=== PATIENT | female | born 1995 | race Caucasian/White ===

== ENCOUNTER → 2022-09-27 13:07 | Outpatient (BNVA) | payer BC, SELFPAY | PROVIDERS: Family Provider Nurse Practitioner; PCP Family Medicine; Visit Provider Family Medicine | DX: Z34.90 Encounter for supervision of normal pregnancy, unspecified, unspecified trimester (principal) | CPT/HCPCS: 80307; 81000; 81025; 84144; 84443; 84702; 85025; 86592; 86762; 86803; 86850; 86900; 87086; 87340; 87491; 87591; 87806 ==

== ENCOUNTER 2022-11-03 12:44 | Outpatient (CLI) | payer BC, SELFPAY ==
--- NOTE | 2022-11-03 12:45 | US_ITS ---
WS: [id number] EARLY OBSTETRICAL ULTRASOUND (<14 WEEKS). HISTORY: Dates. COMPARISON: None available. Single intrauterine gestational sac is identified. Cardiac activity at 160 BPM. [place]-rump length sharon sures 5.5 cm which corresponds to a gestation of 12w1d. Normal-appearing yolk sac and amnion demonstr ated. No subchorionic hemorrhage. No free fluid. Normal size ovaries with no mass. Cervix is closed measuring 3.8 cm in length. US/US OB <= 14 weeks fetus [id number] IMPRESSION: 1. Single intrauterine gestation of 12 weeks 1 day with an EDC of 05/17/2023. 2. Normal cardiac cavity.
== END 2022-11-03 12:45 | disposition home or self-care (01) ==
PROVIDERS: Family Provider Nurse Practitioner; PCP Family Medicine; Visit Provider Family Medicine
DX: Z36.87 Encounter for antenatal screening for uncertain dates (principal); Z3A.12 12 weeks gestation of pregnancy
CPT/HCPCS: 76801

== ENCOUNTER → 2022-11-24 11:42 | Outpatient (BNVA) | payer BC, SELFPAY | PROVIDERS: Family Provider Nurse Practitioner; PCP Family Medicine; Visit Provider Family Medicine | DX: Z34.00 Encounter for supervision of normal first pregnancy, unspecified trimester (principal) | CPT/HCPCS: 81511 ==

== ENCOUNTER 2022-12-29 14:12 | Outpatient (CLI) | payer BC, SELFPAY ==
--- NOTE | 2022-12-29 14:15 | US_ITS ---
WS: [email or web address] OBSTETRICAL ULTRASOUND COMPLETE HISTORY: Anatomy US - 5 weeks from now - 12/29, 12/30 or 12/31 best COMPARISON: 11/03/2022 Single intrauterine gestation in breech presentation. Cervix is Closed and normal length. Cervical length is 4.2 cm. Normal amount of amniotic fluid surrounds the fetus. Placenta: Anterior, no previa or abruption. Placenta ends 2 cm above the internal cervical os. Place nta grade 1 Heart: 129 BPM. Four chambers are identified. Outflow tracts are not well visualized. Anatomy: Intracranial structures are normal. Due to position the spine is limited. kidney s, stomach and urinary bladder are unremarkable. Abdominal wall, three-vessel cord and cord insertion site are normal. 4 extremities are present. The orientation of the foot with the lower extremity is at a very sharp an gle. This needs to be further evaluated for possible clubfoot. This also may be related to crossing l ower extremities. profile: Unremarkable. Gender: Female. measurements: BPD = 4.5 cm = 19w5d; HC = 17.1 cm = 19w5d; AC = 14.7 cm = 20w0d; FL = 3.4 cm = 20w5d; EFW: 340 g. Biometry is internally concordant. AGA by ultrasound: 20w0d JASON by ultrasound: 05/18/2023 Normal growth since the prior study. US/US OB >= 14 weeks fetus [id number] IMPRESSION: 1. Single intrauterine gestation of 20w0d with an JASON of 05/18/2023. Appropria te growth of the fetus since the prior ultrasound. 2. Limited evaluation of the four-chamber heart and outflow tracts, suspect fe katy spine and lower extremities. Recommend reevaluation of the lower extremitie s for orientation related to the tib-fib and feet. Remaining anatomy is normal.
== END 2022-12-29 14:13 | disposition home or self-care (01) ==
LOC: RAD 14:13
PROVIDERS: PCP Family Medicine; Visit Provider Family Medicine
DX: Z34.00 Encounter for supervision of normal first pregnancy, unspecified trimester (principal)
CPT/HCPCS: 76805

== ENCOUNTER → 2023-01-18 09:52 | Outpatient (BNVA) | payer BC, SELFPAY | PROVIDERS: PCP Family Medicine; Visit Provider Family Medicine | DX: R30.0 Dysuria (principal) | CPT/HCPCS: 87086 ==

== ENCOUNTER 2023-02-02 07:28 | Outpatient (CLI) | payer BC, SELFPAY ==
--- NOTE | 2023-02-02 08:00 | US_ITS ---
WS: [email or web address] ULTRASOUND OB LIMITED TECHNIQUE: Limited ultrasound examination of the fetus. CLINICAL INFORMATION: Follow up US 2-3 weeks COMPARISON: December 29, 2022 FINDINGS: Cervix measures 3.7 cm Single interuterine gestation. presentation is vertex Placental location is anterior and low-lying. Placenta grade: 0. heart rate 131 BPM. Anatomy: Normal spinal visualized today. Four-chamber heart and outflow tracts appear normal today. B ilateral tib-fib and visualized feet appear normal. US/US OB limited [id number] IMPRESSION: 1. Placenta is anterior and low-lying. Recommend 3rd trimester follow-up. 2. Normal cervix measuring 3.7 CM. 3. Four-chamber heart and outflow tracts appear normal today. 4. Visualized spine appears normal. 5. Bilateral tib-fib and visualized feet appear normal.
== END 2023-02-02 07:29 | disposition home or self-care (01) ==
PROVIDERS: PCP Family Medicine; Visit Provider Family Medicine
DX: Z34.00 Encounter for supervision of normal first pregnancy, unspecified trimester (principal)
CPT/HCPCS: 76815

== ENCOUNTER → 2023-02-24 10:49 | Outpatient (BNVA) | payer BC, SELFPAY | PROVIDERS: PCP Family Medicine; Visit Provider Family Medicine | DX: R25.2 Cramp and spasm (principal); Z34.00 Encounter for supervision of normal first pregnancy, unspecified trimester | CPT/HCPCS: 80048; 82950; 83735 ==

== ENCOUNTER → 2023-03-24 11:34 | Outpatient (BNVA) | payer BC, SELFPAY | PROVIDERS: PCP Family Medicine; Visit Provider Family Medicine | DX: Z51.81 Encounter for therapeutic drug level monitoring (principal) | CPT/HCPCS: 85025 ==

== ENCOUNTER 2023-04-05 07:09 | Outpatient (CLI) | payer BC, SELFPAY ==
--- NOTE | 2023-04-05 07:15 | US_ITS ---
WS: [email or web address] ULTRASOUND OB FOCUSED HISTORY: Low lying placenta COMPARISON: 02/02/2023 Single intrauterine gestation in vertex position. Cervix is closed at 3.2 cm. heart rate at 141 BPM. Anterior placenta with no previa or abruption. Placenta is well above the cervical os. Placenta grade 1. US/US OB limited [id number] IMPRESSION: Anterior placenta. No low-lying placenta or placenta previa.
== END 2023-04-05 07:10 | disposition home or self-care (01) ==
PROVIDERS: PCP Family Medicine; Visit Provider Family Medicine
DX: O44.40 Low lying placenta NOS or without hemorrhage, unspecified trimester (principal)
CPT/HCPCS: 76815

== ENCOUNTER → 2023-04-27 13:56 | Outpatient (BNVA) | payer BC, SELFPAY | PROVIDERS: PCP Family Medicine; Visit Provider Family Medicine | DX: Z34.00 Encounter for supervision of normal first pregnancy, unspecified trimester (principal) | CPT/HCPCS: 87081 ==

== ENCOUNTER 2023-05-12 14:20 | Outpatient (CLI) | payer BC, SELFPAY ==
[2023-05-12] VITALS (8 sets, daily range): BP systolic 101–129; BP diastolic 75–90; PULSE 80–120; TEMP 36.6; BMI 30.2
--- NOTE | 2023-05-12 14:40 | US_ITS ---
WS: [email or web address] LIMITED OBSTETRICAL ULTRASOUND HISTORY: Fundal Height Measuring Behind COMPARISON: 04/05/2023, 11/03/2022 Presentation: Vertex. Cervix: Obscured by the head. Placenta: Anterior, no previa. Grade: 2 HEART: FHR of 122 BPM. measurements: BPD = 9.6 cm = 39w1d; 79th percentile HC = 34.1 cm = 39w2d; 39th percentile AC = 35.4 cm = 39w2d; 72nd percentile FL = 7.7 cm = 39w2d; 59th percentile JOHANNA: 8.5 cm EFW: 3729 g; 89th percentile AGA by ultrasound: 39w2d JASON by ultrasound: 05/17/2023 US/US OB limited [id number] IMPRESSION: 1. Single intrauterine gestation of 39 weeks 2 days with EDC of 05/17/2023. Appr opriate growth since the first trimester ultrasound. 2. No growth asymmetry. 3. Estimated weight at the 89th percentile for age.
== END 2023-05-12 16:46 | disposition home or self-care (01) ==
LOC: OPOB 14:32 → OBGYN 14:33
PROVIDERS: PCP Family Medicine; Visit Provider Family Medicine
DX: Z36.4 Encounter for antenatal screening for fetal growth retardation (principal); Z3A.39 39 weeks gestation of pregnancy
CPT/HCPCS: 59025; 76815; 99211

== ENCOUNTER 2023-05-19 16:42 | Outpatient (CLI) | payer BC, SELFPAY ==
[2023-05-19 16:53] VITALS: RESP 17; TEMP 36.8
[2023-05-19 16:58] VITALS: BP 111/75; PULSE 90
[2023-05-19 17:13] VITALS: BP 110/79; PULSE 111
[2023-05-19 17:26] LABS: Actim Prom Negative
[2023-05-19 17:28] VITALS: BP 113/79; PULSE 85
[2023-05-19 17:43] VITALS: BP 104/74; PULSE 88
== END 2023-05-19 17:53 | disposition home or self-care (01) ==
LOC: OPOB 16:43 → OBGYN 16:44
PROVIDERS: PCP Family Medicine; Visit Provider Family Medicine
DX: O47.9 False labor, unspecified (principal); O26.899 Other specified pregnancy related conditions, unspecified trimester; N89.8 Other specified noninflammatory disorders of vagina; Z3A.00 Weeks of gestation of pregnancy not specified
CPT/HCPCS: 59025; 83986; 84112; 99211

== ENCOUNTER 2023-05-21 00:48 | Inpatient (IN) | payer BC, SELFPAY ==
[2023-05-20 23:15] VITALS: BMI 30.1
[2023-05-20 23:44] VITALS: BP 114/76; PULSE 92
[2023-05-21] VITALS (84 sets, daily range): BP systolic 93–135; BP diastolic 53–82; PULSE 76–133; RESP 15–18; TEMP 35.9–36.8; O2SAT 97–100
[2023-05-21 00:17] LABS: Basophils % 0.3 %; Eosinophils # 0.2 10^3/uL (0.0-0.8); Eosinophils % 1.4 %; Hematocrit 33.1 % (37.0-47.0); Hemoglobin 10.6 g/dL (11.5-15.3); Lymphocytes # 2.6 10^3/uL (0.8-4.8); Lymphocytes % 21.8 %; Mean Corpuscular Hemoglobin 27.7 pg (28.0-34.0); Mean Corpuscular Volume 86.4 fl (81-99); Mean Platelet Volume 13.3 fL (7.4-10.4); Monocytes # 0.9 10^3/uL (0.2-0.9); Monocytes % 7.7 %; Neutrophils # 7.98 10^3/uL (1.8-7.7); Neutrophils % 67.9 %; Nucleated Red Blood Cells % 0 %; Platelet Count 218 10^3/cmm (130-400); Red Blood Count 3.83 10^6/uL (4.1-5.3); Red Cell Distribution Width 14.8 % (12.1-15.1); White Blood Count 11.7 10^3/uL (4.0-10.0)
[2023-05-21] MEDS: miSOPROStol 100 mcg tablet 25 MCG VAGINAL (00:25)
[2023-05-21] MEDS: dextrose 5%-lactated ringers 1,000 ML 125 ML IV ×3 (05:05→18:58)
--- NOTE | 2023-05-21 09:10 | PM.HP ---
Providers/Chief Complaint Admitting Physician: Trevon Castillo MD Primary Care Provider: Jim Vasquez MD Chief Complaint: Elective Induction of Labor History of Present Illness Anderson Breaux is a 27 year old at 40.5 wks by LMP c/w 12 wk US. Preg c/b h/o genital herpes, h/o seizure as an infant without any since, patient born at 34 weeks gestation, h/o depression, COVID at 26 weeks, migraines. The patient presented to labor and delivery triage for a scheduled induction of labor due to postdates. Upon presentation she was 2 cm dilated. She was garfield every 7 to 10 minutes. The patient denies any chest pains, shortness of breath, nausea, vomiting, diarrhea, constipation, fever, burning with urination, leakage of fluid, vaginal bleeding. Medications/Allergies Home Medications Medication Instructions Recorded Confirmed Last Taken Type prenat.vits,ifeoma,wdg-wtkq-vizux 1 tab PO DAILY 09/27/22 05/21/23 05/20/23 History 0800 Breast pump #1 ea 01/18/23 05/18/23 Unknown Rx valacyclovir 500 mg tablet 500 mg PO BID 4 weeks #56 tabs 04/18/23 05/21/23 05/12/23 Rx Allergies Allergy/AdvReac Type Severity Reaction Status Date / Time No Known Allergies Allergy Verified 05/21/23 00:07 PFSH Acute PFSH: Medical History Depression History of duodenal atresia Repaired as an Hx of herpes genitalis Surgical History H/O oral surgery History of intestinal surgery Duodenal atresia repair as an infant S/P myringotomy with insertion of tube S/P tonsillectomy and adenoidectomy Family History Grandfather Hypertension maternal Diabetes maternal Heart disease maternal Hyperlipidemia maternal Colon cancer paternal Grandmother Hypertension maternal Social History Smoking and tobacco status: never smoked Alcohol intake: current Alcohol intake frequency: holidays/special occasions only Substance/Drug Use: never Female Reproductive History: : 1 Vitals/I&O/Wt Last Vital Signs Temp 97.5 F L 05/21/23 07:34 Pulse 82 05/21/23 09:05 Resp 15 05/21/23 00:02 BP 118/77 05/21/23 09:05 O2 Del Method Room Air 05/20/23 23:15 05/20/23 05/21/23 05/21/23 22:59 06:59 14:59 Intake Total 0.75 / 0.75 25.833 / 25.833 Balance 0.75 / 0.75 25.833 / 25.833 Weight last 48 hrs Weight 170 lb Physical Exam Narrative: General: Alert and oriented x3 Eyes: Pupils equal round and reactive to light and accommodation Mouth: Mucous membranes moist, pharynx non-erythematous Cardiac: Regular rate and rhythm without murmurs Lungs: Clear to auscultation bilaterally without wheezes, crackles or rhonchi Abdomen: Soft, non-tender, fundus consistent with gestational age Extremities: Trace edema in the bilateral lower extremities Data 05/20/23 23:35 A&P Assessment and plan (1) Supervision of normal intrauterine in primigravida: The patient is doing well at this time. She was given 1 dose of Cytotec overnight. She changed from a tight 2 cm and currently is 3.5 cm dilated and 85% effaced. She has mild bloody show. heart tones are in the mid 140s with moderate variability good accelerations with a category 1 tracing. She is now on IV Pitocin and garfield every 2 to 4 minutes. We will proceed with induction of labor. All questions were answered. The patient and her family are in agreement with current plan of care. Attestations Medical Necessity Statement*: The patient will be here for greater than 2 midnights due to routine intrapartum and management of labor and delivery. Coding Level of Care Code Acute Code for Chg Fwd Diagnoses Supervision of normal intrauterine in primigravida Z34.00
[2023-05-21] MEDS: lactated ringers 1,000 ML 999 ML IV (09:40)
--- NOTE | 2023-05-21 10:25 | ANES.PREANE2 ---
Pre-Anesthetic Assessment Height/Weight: Height 1.6 m Weight 77.111 kg Temp Pulse Resp BP Pulse Ox O2 Del Method 97.5 F L 96 15 120/72 99 Room Air 05/21/23 07:34 05/21/23 10:22 05/21/23 00:02 05/21/23 10:21 05/21/23 10:22 05/20/23 23:15 Preop Diagnosis: IUP Labor Epidural Familial anesthetic complications: None Last intake: 199905/20/23 solid clears- current Social No alcohol and No tobacco Exam alert, oriented x 3 and clear to auscultation bilaterally Airway Submandibular: within normal limits Cervical ROM: within normal limits Mallampati: Class II Dentition: full History/ROS No significant history except as noted Pulmonary None reported CV/HEM None reported None reported Hepatic None reported GI None reported Metabolic None reported Musc/skel None reported Neuropsych None reported Anesthetic Plan ASA status: 2 Anesthesia: Regional (specify below) Other: Labor Epidural Medications/Allergies Home Medications Medication Instructions Recorded Confirmed Last Taken Type prenat.vits,ifeoma,bta-svdu-juire 1 tab PO DAILY 09/27/22 05/21/23 05/20/23 History 0800 Breast pump #1 ea 01/18/23 05/18/23 Unknown Rx valacyclovir 500 mg tablet 500 mg PO BID 4 weeks #56 tabs 04/18/23 05/21/23 05/12/23 Rx Allergies Allergy/AdvReac Type Severity Reaction Status Date / Time No Known Allergies Allergy Verified 05/21/23 00:07 Current Medications Generic Name Dose Route Start Last Admin Trade Name Chata PRN Reason Stop Dose Admin Dextrose/Lactated Ringer's 1,000 mls @ 125 mls/hr 05/21/23 00:15 05/21/23 05:05 Dextrose 5%-Lactated Ringers IV 125 mls/hr .Q8H GI Administration Oxytocin 30 unit/ Sodium 503 mls @ 1 mls/hr 05/21/23 05:00 05/21/23 09:05 Chloride IV 17 mls/hr .Q24H GI 17 mls/hr Titration Protocol Lactated Ringer's 1,000 mls @ 999 mls/hr 05/21/23 09:29 05/21/23 09:40 Lactated Ringers IV 999 mls/hr .Q1H1M PRN Administration See label comments Ropivacaine 100 mg in 50 mls @ 10 mls/hr 05/21/23 09:30 05/21/23 09:44 Naropin Syringe EPIDURAL 10 mls/hr .Q5H GI Administration PFSH Anesthesia Medical History Depression History of duodenal atresia Repaired as an Hx of herpes genitalis Surgical History H/O oral surgery History of intestinal surgery Duodenal atresia repair as an infant S/P myringotomy with insertion of tube S/P tonsillectomy and adenoidectomy Family History Grandfather Hypertension maternal Diabetes maternal Heart disease maternal Hyperlipidemia maternal Colon cancer paternal Grandmother Hypertension maternal Social History Smoking and tobacco status: never smoked Alcohol intake: current Alcohol intake frequency: holidays/special occasions only Substance/Drug Use: never Female Reproductive History : 1 Data Anesthesia 05/20/23 23:35 Short CBC 05/20/23 Range/Units 23:35 WBC 11.7 H (4.0-10.0) 10^3/uL Hgb 10.6 L (11.5-15.3) g/dL Hct 33.1 L (37.0-47.0) % MCV 86.4 (81-99) fl Plt Count 218 (130-400) 10^3/cmm Neut % (Auto) 67.9 % Neut # (Auto) 7.98 H (1.8-7.7) 10^3/uL Cardiac Studies: No Data to Display Anesthesia Procedures Epidural Time Out Performed: Yes Consent: from patient, risks and benefits reviewed and patient agrees to proceed Lumbar Level: L3-L4 Epidural position: sitting Epidural procedure: sterile prep of area, 1% lidocaine to numb the area, negative for paresthesia passed, test dose given, 1.5% xylocaine 1:200k epi, placed PCEA, no systemic response, sterile dressing applied, L.U.D. no apparent complications and 0.2% Ropiavacaine @ mls/hr (10) Additional Comments: REBECCA at 5 cm on first attempt catheter threaded with ease. 5ml test dose given - heme, -csf, no systemic response. 100 mcg Fentanyl remaining saline and lidocaine in kit given via epidural. Patient reported adequate analgesia catheter inserted to 11cm.
--- NOTE | 2023-05-21 17:41 | P.PCNOB_ITS ---
Delivery Note: Date of delivery: May 21, 2023 Pre-delivery diagnoses: 1. Intrauterine at 40.5 weeks gestation 2. History of genital herpes without active lesions 3. History of seizure as an infant 4. COVID-19 infection at 26 weeks gestation 5. Migraine headaches Post-delivery diagnoses: 1. Intrauterine status post vacuum-assisted vaginal delivery at 40.5 weeks gestation 2. History of genital herpes without active lesions 3. History of seizure as an 4. COVID-19 infection at 26 weeks gestation 5. Migraine headaches 6. Delivery of healthy female weighing 7 pounds 6 ounces with Apgars of 9 and 9 7. Third-degree laceration with repair Procedure: Spontaneous vaginal delivery Third-degree laceration with repair Delivering Physician: MD Dr. Rodríguez Denny proctored third-degree laceration repair Estimated blood loss (mL): 300 Findings: 1. Healthy female weighing 7 pounds 6 ounces with Apgars of 9 and 9 2. Intact placenta with central umbilical cord insertion site 3. Third-degree laceration with repair Pre-Delivery Course: Anderson Breaux is a 27 year old G1 now P1 status post vacuum-assisted vaginal delivery at 40.5 wks by LMP c/w 12 wk US. Preg c/b h/o genital herpes, h/o seizure as an infant without any since, patient born at 34 weeks gestation, h/o depression, COVID at 26 weeks, migraines. The patient presented to labor and delivery on the evening of 05/20/2023 for a scheduled induction of labor due to postdates. The patient was given 1 dose of Cytotec and change to a Fraser of 5. At that time she was started on IV Pitocin. The patient had spontaneous rupture membranes at 9:35 AM on 05/21/2023. The fluid was noted to be clear. The patient continued to make good progress and was complete by 1320 on 05/21/2023. There were multiple deep early decelerations with each contraction. There was decent recovery between with moderate variability. Delivery: The patient began pushing at 1324 on 05/21/2023. The patient pushed well, but the infant did not descend quickly. It was felt that the infant may be in the OP position. I was unable to get the to rotate internally. After 2 hours of pushing, the infant was in the +2 position. We discussed options for going for section or trying a vacuum to assist with delivery. The patient requested to proceed with vacuum assisted delivery. The vacuum was placed and with each contraction tension was placed on the vacuum. The head gradually descended to the +5 position. There were 2 pop offs noted with this. The infant did have a significant amount of hair that may have made this easier to happen. Since the infant was after this, the vacuum was laid aside and the patient continued to push. The infant delivered in the OP position at 1615 on 05/21/2023. There was a nuchal cord present and the infant was delivered through this. The infant's left shoulder was the anterior shoulder and it delivered with ease. The rest of the delivered with ease. The 's mouth and nose were bulb suctioned by myself and the was noted to be crying immediately upon delivery. The was placed on the mother's chest where the nurses were waiting to care for her. The cord was clamped by myself after approximately 1 minute and cut by the 's father. Cord blood was obtained. The cord was then drained of blood and traction was placed on umbilical cord. The uterus was massaged and the placenta delivered without complication at 1623 on 05/21/2023. The placenta was noted to be intact with central umbilical cord insertion site. The cervix was inspected and no lacerations were noted. The vaginal wall was inspected and a third degree laceration was noted. Dr. Arreguin was kind enough to Duran me with the repair. The capsule was located with Allises. 2-0 chromic was used to reapproximate the posterior and anterior capsule and 4 separate sutures. The posterior vaginal wall was reapproximated using 2-0 chromic. Finally the rest of the laceration was repaired using 3-0 Vicryl. A rectal exam was done afterwards and no sutures were noted in the rectal vault. The patient's epidural provided adequate anesthesia. The patient tolerated the procedure well. History History History 1 Term 0 0 Miscarriages/Ectopic 0 Living Children 0 Past Pregnancies Del. Date GA/Weeks Outcome Route Wt Inf Gender Labor Lgth Comp. Anesth esia Location 05/21/23 40 live - full term Opperative 7 lb 6 oz Female 16 hr Third degre e laceration regional [facility] Delivery Date: 05/21/23 Last Updated by: Trevon Castillo MD Third-degree laceration, vacuum-assisted vaginal delivery, OP delivery. A&P Assessment and plan (1) Third degree perineal laceration: (2) Vacuum-assisted vaginal delivery: Coding Level of Care Code Acute Code for Chg Fwd Diagnoses Third degree perineal laceration O70.20 Vacuum-assisted vaginal delivery Z37.9
[2023-05-21] MEDS: ibuprofen 800 mg tablet PO (22:22)
[2023-05-22] VITALS: BP 102/69; PULSE 91; RESP 16; TEMP 36.9; O2SAT 99
[2023-05-22] MEDS: HYDROcodone-acetaminophen 5-325 mg Tablet PO (01:32)
[2023-05-22 04:00] VITALS: BP 100/70; PULSE 95; RESP 15
[2023-05-22 06:18] LABS: Hematocrit 24.7 % (37.0-47.0); Hemoglobin 7.9 g/dL (11.5-15.3); Mean Corpuscular Volume 87.6 fl (81-99); Mean Platelet Volume 12.9 fL (7.4-10.4); Platelet Count 171 10^3/cmm (130-400); Red Blood Count 2.82 10^6/uL (4.1-5.3); White Blood Count 27.1 10^3/uL (4.0-10.0)
[2023-05-22] MEDS: docusate sodium 100 mg Capsule PO ×2 (09:18→20:20)
[2023-05-22] MEDS: ibuprofen 800 mg tablet PO ×3 (09:18→20:20)
[2023-05-22] MEDS: prenatal vitamin Capsule 1 CAP PO (09:18)
[2023-05-22] MEDS: ferrous sulfate EC 325 mg Tablet PO ×2 (09:19→20:20)
[2023-05-22 09:27] VITALS: BP 100/66; PULSE 99; RESP 17; TEMP 36.7; O2SAT 98
--- NOTE | 2023-05-22 10:03 | PM.PN ---
Subjective Subjective: The patient is doing well overall today. She has had some episodes of feeling lightheaded and dizzy with standing. These improve quickly and her blood pressures have been in the normal range, however on the lower side of normal. She has been afebrile. Her pain is well controlled with ibuprofen and occasional [place]. Her bleeding is decreasing well. She is ambulating, voiding, passing gas and tolerating food by mouth. Vitals/I&O/Wt Last Vital Signs Temp 98.4 F 05/22/23 00:00 Pulse 95 05/22/23 04:00 Resp 15 05/22/23 04:00 BP 100/70 05/22/23 04:00 Pulse Ox 99 05/22/23 00:00 O2 Del Method Room Air 05/22/23 00:00 O2 Flow Rate 10 05/21/23 13:24 05/21/23 05/22/23 05/22/23 22:59 06:59 14:59 Intake Total 914.583 / 1990.416 Output Total 400 / 400 Balance 514.583 / 1590.416 Weight last 48 hrs Weight 170 lb Physical Exam Narrative: General: Alert and oriented x3 Cardiac: Regular rate and rhythm without murmurs Lungs: Clear to auscultation bilaterally without wheezes, crackles or rhonchi Abdomen: Soft, mild tenderness over uterus. The uterus is firm and 2 cm below the umbilicus. Extremities: +1 pitting edema in the bilateral lower extremities Urinary Catheter Management: Abraham: Cath Placed During This Visit: yes, but has since been removed by the nurse Reason for Continuing Indwelling Catheter: Other Urinary Catheter Date of Insertion: 05/21/23 Urinary Catheter Time of Insertion: 10:35 Date Urinary Catheter Removed: 05/21/23 Time Urinary Catheter Discontinued: 13:20 Data 05/22/23 06:05 A&P Assessment and plan (1) Vacuum-assisted vaginal delivery: The patient is doing well overall after delivery. She is having some symptoms of orthostasis and her hemoglobin did drop from 10.6 to 7.9. Her blood pressure is stable at this time. She is afebrile and her heart rate is decreasing well. I do not feel that this is due to infection at this time. Her white blood cell count was elevated, likely related to her prolonged second stage of labor. We will recheck labs tomorrow morning and go from there. The patient was advised to be cautious with standing and hot showers and to sit down if she is feeling lightheaded or dizzy. We will start iron tablets twice a day today. The patient also will be given Senokot to help with constipation issues. We will continue with routine care otherwise. Possible discharge home tomorrow if she is doing well. Attestations Medical Necessity Statement*: The patient will be here for greater than 2 midnights due to routine intrapartum and management of labor and delivery. Coding Level of Care Code Acute Code for Chg Fwd Diagnoses Vacuum-assisted vaginal delivery Z37.9
[2023-05-22] MEDS: acetaminophen 325 mg Tablet 650 MG PO (13:41)
[2023-05-22 16:11] VITALS: BP 111/75; PULSE 82; RESP 17; TEMP 36.7; O2SAT 98
[2023-05-22 21:55] VITALS: BP 98/68; PULSE 86; RESP 18; TEMP 36.4; O2SAT 98
[2023-05-23 05:00] VITALS: BP 110/70; PULSE 81; RESP 16; TEMP 36.6; TEMP 36.7; O2SAT 98
[2023-05-23] MEDS: HYDROcodone-acetaminophen 5-325 mg Tablet PO (05:08)
[2023-05-23 05:21] LABS: Basophils # 0.1 10^3/uL (0.0-0.1); Basophils % 0.3 %; Eosinophils # 0.4 10^3/uL (0.0-0.8); Eosinophils % 2.1 %; Hematocrit 22.8 % (37.0-47.0); Hemoglobin 7.1 g/dL (11.5-15.3); Lymphocytes # 2.9 10^3/uL (0.8-4.8); Lymphocytes % 16.9 %; Mean Corpuscular HGB Conc 31.1 g/dL (30.0-36.0); Mean Corpuscular Hemoglobin 27.8 pg (28.0-34.0); Mean Corpuscular Volume 89.4 fl (81-99); Mean Platelet Volume 12.8 fL (7.4-10.4); Monocytes % 5.5 %; Neutrophils # 12.92 10^3/uL (1.8-7.7); Neutrophils % 74.1 %; Nucleated Red Blood Cells % 0 %; Platelet Count 190 10^3/cmm (130-400); Red Blood Count 2.55 10^6/uL (4.1-5.3); Red Cell Distribution Width 15.4 % (12.1-15.1); White Blood Count 17.4 10^3/uL (4.0-10.0)
--- NOTE | 2023-05-23 08:30 | PM.DCS ---
Discharge Providers Date of Admission: 05/21/23 00:48 Date of Discharge: May 23, 2023 Attending Provider at Admission: Trevon Castillo MD Attending Provider at Discharge: Trevon Castillo MD Primary Care Provider: Jim Vasquez MD Diagnoses at Discharge Discharge Diagnosis (1) Vacuum-assisted vaginal delivery: Status: Resolved Other Information Additional DC diagnoses/information: 1.? Intrauterine status post vacuum-assisted vaginal delivery at 40.5 weeks gestation 2.? History of genital herpes without active lesions 3.? History of seizure as an infant 4.? COVID-19 infection at 26 weeks gestation 5.? Migraine headaches 6.? Delivery of healthy infant female weighing 7 pounds 6 ounces with Apgars of 9 and 9 7.? Third-degree laceration with repair Reason for Visit Reason for Visit: Elective Induction of Labor Brief History: Anderson Breaux is a 27 year old G1 now P1 status post vacuum-assisted vaginal delivery at 40.5 wks by LMP c/w 12 wk US. Preg c/b h/o genital herpes, h/o seizure as an without any since, patient born at 34 weeks gestation, h/o depression, COVID at 26 weeks, migraines. The patient presented to labor and delivery on the evening of 05/20/2023 for a scheduled induction of labor due to postdates.? The patient was given 1 dose of Cytotec and change to a Fraser of 5.? At that time she was started on IV Pitocin.? The patient had spontaneous rupture membranes at 9:35 AM on 05/21/2023.? The fluid was noted to be clear.? The patient continued to make good progress and was complete by 1320 on 05/21/2023.? There were multiple deep early decelerations with each contraction.? There was decent recovery between with moderate variability. Hospital Course Hospital Course The patient delivered on the afternoon of 05/21/2023 via vacuum-assisted vaginal delivery. She had 1/3 degree laceration that was repaired without complication. , the patient has done well without complications. She is ambulating, voiding, passing gas and tolerating food by mouth. She feels that she has adequate control of her flatus. We will plan to follow-up in clinic. Discharge instructions were discussed. All questions were answered. Physical Exam Narrative: General: Alert and oriented x3 Cardiac: Regular rate and rhythm without murmurs Lungs: Clear to auscultation bilaterally without wheezes, crackles or rhonchi Abdomen: Soft, mild tenderness over uterus. The uterus is firm and 2 cm below the umbilicus. Extremities: Trace edema in the bilateral lower extremities Urinary Catheter Management: Abraham: Cath Placed During This Visit: yes, but has since been removed by the nurse Reason for Continuing Indwelling Catheter: Other Urinary Catheter Date of Insertion: 05/21/23 Urinary Catheter Time of Insertion: 10:35 Date Urinary Catheter Removed: 05/21/23 Time Urinary Catheter Discontinued: 13:20 Discharge Data Studies Completed and Pending Laboratory Results WBC 17.4 10^3/uL (4.0-10.0) H 05/23/23 05:15 RBC 2.55 10^6/uL (4.1-5.3) L 05/23/23 05:15 Hgb 7.1 g/dL (11.5-15.3) L 05/23/23 05:15 Hct 22.8 % (37.0-47.0) L 05/23/23 05:15 MCV 89.4 fl (81-99) 05/23/23 05:15 MCH 27.8 pg (28.0-34.0) L 05/23/23 05:15 MCHC 31.1 g/dL (30.0-36.0) 05/23/23 05:15 RDW 15.4 % (12.1-15.1) H 05/23/23 05:15 Plt Count 190 10^3/cmm (130-400) 05/23/23 05:15 MPV 12.8 fL (7.4-10.4) H 05/23/23 05:15 Neut % (Auto) 74.1 % 05/23/23 05:15 Lymph % (Auto) 16.9 % 05/23/23 05:15 [place] % (Auto) 5.5 % 05/23/23 05:15 Eos % (Auto) 2.1 % 05/23/23 05:15 Baso % (Auto) 0.3 % 05/23/23 05:15 Neut # (Auto) 12.92 10^3/uL (1.8-7.7) H 05/23/23 05:15 Lymph # (Auto) 2.9 10^3/uL (0.8-4.8) 05/23/23 05:15 [place] # (Auto) 1.0 10^3/uL (0.2-0.9) H 05/23/23 05:15 Eos # (Auto) 0.4 10^3/uL (0.0-0.8) 05/23/23 05:15 Baso # (Auto) 0.1 10^3/uL (0.0-0.1) 05/23/23 05:15 Nucleated RBC % (auto) 0 % 05/23/23 05:15 Nucleated RBCs # 0.0 /100WBC 05/23/23 05:15 Vitals Last Vital Signs Temp 98.0 F 05/23/23 05:00 Pulse 81 05/23/23 05:00 Resp 16 05/23/23 05:00 BP 110/70 05/23/23 05:00 Pulse Ox 98 05/23/23 05:00 O2 Del Method Room Air 05/23/23 05:00 O2 Flow Rate 10 05/21/23 13:24 Discharge Plan Discharge Patient Disposition: Home Condition: Good Prescriptions: New ferrous sulfate 325 mg (65 mg iron) Tablet,Delayed Release (Dr/Ec) 325 mg PO BIDWM Qty: 60 0RF ibuprofen 800 mg Tablet 800 mg PO TID Qty: 60 0RF hydrocodone-acetaminophen 5-325 mg Tablet 1 - 2 tab PO Q6H PRN (Reason: Moderate To Severe Pain) Qty: 10 0RF Senokot 8.6 mg tablet 8.6 mg PO BID PRN (Reason: constipation) Qty: 60 0RF Continued prenat.vits,ifeoma,[id number] Tablet 1 tab PO DAILY Discontinued valacyclovir 500 mg tablet 500 mg PO BID 28 Days Qty: 56 1RF No Action (DME) Breast pump See Rx Instructions .Route .MEDSUPPLY Qty: 1 0RF Rx Instructions: As directed Discharge Orders: Discharge Order (Routine); Ordered 05/23/23 Ordered By: Trevon Castillo Referrals: Trevon Castillo MD [Physician] - 07/05/23 10:00 am Discharge Diet: Regular Discharge Activity: Increase activity as tolerated Patient Instructions: Depression (DC), Bleeding (DC), Preeclampsia and Eclampsia After Delivery (GEN), OB Discharge Report, OB Food/Drug Interaction Guide, Opioid Safety, OB [facility] - [facility], OB Vaginal Deliveries Activity Restrictions/Additional Instructions: Nothing per vagina for 6 weeks. I would recommend showers instead of baths for the first 6 weeks. Discharge Attestations Time Spent in Discharge Care*: greater than 30 min Quality Metrics Clinical Quality Measures [ No reported AMI, CVA or VTE this stay] Coding Level of Care Code Acute Code for Chg Fwd Diagnoses Vacuum-assisted vaginal delivery Z37.9
[2023-05-23] MEDS: prenatal vitamin Capsule 1 CAP PO (08:51)
[2023-05-23] MEDS: ferrous sulfate EC 325 mg Tablet PO (08:52)
[2023-05-23] MEDS: docusate sodium 100 mg Capsule PO (08:52)
[2023-05-23] MEDS: ibuprofen 800 mg tablet PO (08:52)
[2023-05-23 09:15] VITALS: BP 108/72; PULSE 81; RESP 16; TEMP 36.7
[2023-05-23 12:20] VITALS: BP 101/68; PULSE 92; RESP 14; TEMP 36.8; O2SAT 98
[2023-05-23 12:35] VITALS: BP 101/68; PULSE 92; RESP 14; TEMP 36.8; O2SAT 98
== END 2023-05-23 12:53 | disposition home or self-care (01) | DRG 806 ==
LOC: OPOB 00:49 → OBGYN 00:49
PROVIDERS: Admitting Provider Family Medicine; PCP Family Medicine; Visit Provider Family Medicine
DX: O48.0 Post-term pregnancy (principal); O71.4 Obstetric high vaginal laceration alone; Z37.0 Single live birth; O98.32 Other infections with a predominantly sexual mode of transmission complicating childbirth; Z3A.40 40 weeks gestation of pregnancy; O69.81X0 Labor and delivery complicated by cord around neck, without compression, not applicable or unspecified; O90.89 Other complications of the puerperium, not elsewhere classified; R42 Dizziness and giddiness
CPT/HCPCS: 36415; 51702; 59025; 59409; 85025; 85027; 96374; 98960; 99211; J2795; J3010; J7040; J7120; J7121

== ENCOUNTER 2023-06-02 19:37 | Emergency (ER) | payer BC, SELFPAY ==
[2023-06-02 19:40] VITALS: BP 134/88; PULSE 72; RESP 18; TEMP 37; O2SAT 100; BMI 26.5
--- NOTE | 2023-06-02 19:49 | W.ED.FEMALGU ---
HPI - Female Genitourinary General: Chief complaint: Vaginal Bleeding Stated complaint: vag bleeding post delivery Time Seen by Provider: 06/02/23 19:44 Source: patient Mode of arrival: ambulatory Limitations: no limitations History of Present Illness: 28-year-old female who had a vaginal delivery 12 days ago did have 1/3 degree tear with the delivery. She states she has been doing very well but today roughly 30 minutes ago started having a large amount of bleeding states she had a gush and has passed blood clots she has had some lightheadedness blood pressure here is normal. She has had some slight pain but no severe pain denies any fevers. Associated symptoms: Deny abdominal pain, headache(s) or nausea Date of Last Menstrual Period: 07/28/22 Review of Systems Const: Denies: fever(s), chills, body aches or change in appetite ENMT: Denies: throat pain or dental pain Card: Reports: pre-syncope; Denies: chest pain Resp: Denies: dyspnea GI: Denies: abdominal pain, nausea, vomiting or diarrhea : Reports: vaginal bleeding Musc: Denies: neck pain or back pain Skin/Breast: Denies: rash Neuro: Denies: headache(s) PFSH ED PFSH: Medical History Depression History of duodenal atresia Repaired as an infant Hx of herpes genitalis Surgical History H/O oral surgery History of intestinal surgery Duodenal atresia repair as an infant S/P myringotomy with insertion of tube S/P tonsillectomy and adenoidectomy Family History Grandfather Hypertension maternal Diabetes maternal Heart disease maternal Hyperlipidemia maternal Colon cancer paternal Grandmother Hypertension maternal Social History Smoking and tobacco status: never smoked Alcohol intake: current Alcohol intake frequency: holidays/special occasions only Substance/Drug Use: never Female Reproductive History: Date of last menstrual period: 07/28/22 Physical Exam Const: COMMON NORMALS: no acute distress, patient oriented x3 and healthy appearing HENMT: COMMON NORMALS: normocephalic and atraumatic HEAD & SCALP: normocephalic and atraumatic Neck/C-Spine: COMMON NORMALS: full ROM and supple Chest: COMMONS NORMALS: normal inspection of the chest and normal palpation of entire chest wall Resp: COMMON NORMALS: normal respiratory effort, No retractions, No use of accessory muscles and clear to auscultation bilaterally AUSCULTATION: clear to auscultation bilaterally Cardio: COMMON NORMALS: regular rate, regular rhythm and No murmurs present (Cardio) RATE: regular rate RHYTHM: regular rhythm GI: COMMON NORMALS: Normal to inspection, nondistended, normoactive bowel sounds present, Soft to palpation, non-tender and no masses PALPATION: Yes Soft to palpation : OTHER: Cervix is closed no bleeding at this time no blood in the vaginal vault Extremity: COMMON NORMALS: normal to inspection and full ROM Neuro: COMMON NORMALS: patient oriented x3, moves all extremities and no focal motor deficits Psych: COMMON NORMALS: mental status grossly normal, Normal thought process present and cooperative THOUGHT PROCESS: Normal thought process present Skin: COMMON NORMALS: no rashes or lesions noted and no wounds GENERAL SKIN EXAM: no rashes or lesions noted Course Vital Signs: Vital signs: Vital Signs Temperature 98.6 F 06/02/23 19:40 Pulse Rate 73 06/02/23 21:34 Respiratory Rate 16 06/02/23 21:34 Blood Pressure 123/74 06/02/23 21:34 Pulse Oximetry 99 06/02/23 21:34 MDM - Female Medical Decision Making Patient presents here with hemorrhage her exam now shows no active bleeding ultrasound did show concern for possible small amount of retained products I did speak to OB Dr. Arreguin along with Dr. Kathy boo recommended just follow-up I did explain to patient this and inform her if she has any worsening bleeding or fever she is to return immediately she understands agrees to plan. Lab Data 06/02/23 19:48 06/02/23 19:48 Radiology Impressions Pelvis Ultrasound 06/02/23 20:00 IMPRESSION: Vascular structure within the endometrial canal measuring approximately 1.1 cm in diameter with marked internal color Doppler flow and adjacent smaller vascular appearing structures. Findings are concerning for retained products of conception however other etiologies including uterine arteriovenous malformation are also consideration. Correlate and follow-up as clinically indicated. Laboratory Results WBC 8.4 10^3/uL (4.0-10.0) 06/02/23 19:48 RBC 3.45 10^6/uL (4.1-5.3) L 06/02/23 19:48 Hgb 9.5 g/dL (11.5-15.3) L 06/02/23 19:48 Hct 31.1 % (37.0-47.0) L 06/02/23 19:48 MCV 90.1 fl (81-99) 06/02/23 19:48 MCH 27.5 pg (28.0-34.0) L 06/02/23 19:48 MCHC 30.5 g/dL (30.0-36.0) 06/02/23 19:48 RDW 16.5 % (12.1-15.1) H 06/02/23 19:48 Plt Count 454 10^3/cmm (130-400) H 06/02/23 19:48 MPV 10.4 fL (7.4-10.4) 06/02/23 19:48 Neut % (Auto) 55.0 % 06/02/23 19:48 Lymph % (Auto) 37.1 % 06/02/23 19:48 [place] % (Auto) 4.5 % 06/02/23 19:48 Eos % (Auto) 2.3 % 06/02/23 19:48 Baso % (Auto) 0.7 % 06/02/23 19:48 Neut # (Auto) 4.64 10^3/uL (1.8-7.7) 06/02/23 19:48 Lymph # (Auto) 3.1 10^3/uL (0.8-4.8) 06/02/23 19:48 [place] # (Auto) 0.4 10^3/uL (0.2-0.9) 06/02/23 19:48 Eos # (Auto) 0.2 10^3/uL (0.0-0.8) 06/02/23 19:48 Baso # (Auto) 0.1 10^3/uL (0.0-0.1) 06/02/23 19:48 Nucleated RBC % (auto) 0 % 06/02/23 19:48 Nucleated RBCs # 0.0 /100WBC 06/02/23 19:48 Sodium 138 mmol/L (136-145) 06/02/23 19:48 Potassium 3.8 mmol/L (3.5-5.1) 06/02/23 19:48 Chloride 103 mmol/L (98-107) 06/02/23 19:48 Carbon Dioxide 24 mmol/L (22-29) 06/02/23 19:48 Anion Gap 14.8 (5-19) 06/02/23 19:48 BUN 12 mg/dL (6-20) 06/02/23 19:48 Creatinine 0.7 mg/dL (0.5-0.9) 06/02/23 19:48 GFR Calculation 99.6 mL/min (90-130) 06/02/23 19:48 Glucose 88 mg/dL (65-115) 06/02/23 19:48 Calculated Osmolality 285 mOsm/kg (285-295) 06/02/23 19:48 Calcium 9.2 mg/dL (8.5-10.5) 06/02/23 19:48 Total Bilirubin 0.2 mg/dL (0.15-1.2) 06/02/23 19:48 AST 20 U/L (0-32) 06/02/23 19:48 ALT 20 U/L (0-33) 06/02/23 19:48 Alkaline Phosphatase 123 U/L (35-105) H 06/02/23 19:48 Total Protein 6.8 g/dL (6.6-8.7) 06/02/23 19:48 Albumin 4.0 g/dL (3.5-5.2) 06/02/23 19:48 Globulin 2.8 g/dL (1.3-4.6) 06/02/23 19:48 Blood Type O Positive 06/02/23 19:48 Rho(D) Type Positive 06/02/23 19:48 Antibody Screen Negative 06/02/23 19:48 Discharge Plan Discharge Patient Disposition: Home Clinical Impression: bleeding Condition: Stable Prescriptions: No Action prenat.vits,ifeoma,[id number] Tablet 1 tab PO DAILY (DME) Breast pump See Rx Instructions .Route .MEDSUPPLY Qty: 1 0RF Rx Instructions: As directed ferrous sulfate 325 mg (65 mg iron) Tablet,Delayed Release (Dr/Ec) 325 mg PO BIDWM Qty: 60 0RF ibuprofen 800 mg Tablet 800 mg PO TID Qty: 60 0RF hydrocodone-acetaminophen 5-325 mg Tablet 1 - 2 tab PO Q6H PRN (Reason: Moderate To Severe Pain) Qty: 10 0RF Senokot 8.6 mg tablet 8.6 mg PO BID PRN (Reason: constipation) Qty: 60 0RF Discharge Orders: Discharge ED (Routine); Ordered 06/02/23 Ordered By: Jose L Case Referrals: Oseas Arreguin MD [Physician] - 1-3 days Jim Vasquez MD [Primary Care Provider] - Discharge Diet: Advance as tolerated Discharge Activity: Resume usual activity Patient Instructions: Bleeding (ED) Coding Level of Care Code ED Lead Neurodiagnostic Technologist for Shell Rubio
--- NOTE | 2023-06-02 20:00 | USR_ITS ---
PROCEDURE INFORMATION: Exam: US Pelvis Complete, Transabdominal and US Pelvis, Transvaginal Exam date and time: 06/02/2023 9:36 PM Age: 28 years old Clinical indication: Other: 12 S/P vaginal delivery C/O heavy vaginal bleeding continuing. TECHNIQUE: Imaging protocol: Real-time complete transabdominal and transvaginal pelvic ultrasound with image documentation. Transvaginal imaging was used for better evaluation of the endometrium, adnexa, and/or cervix. COMPARISON: US OB limited [id number] 05/12/2023 3:34 PM FINDINGS: Uterus: Uterus measures 13.4 cm x 8 cm x 6.8 cm. The endometrium measures 6 mm in thickness. There is a vascular structure within the endometrial canal measuring approximately 1.1 cm in diameter with marked interna oral color Doppler flow and adjacent smaller vascular appearing structures. Right ovary/adnexa: Right ovary measures 4 cm x 1.7 cm x 2.4 cm. Right ovarian volume is 8.4 mL. Vascular flow is present in the right ovary. Left ovary/adnexa: Left ovary measures 3 cm x 2.2 cm x 1.6 cm. Left ovarian volume is 5.6 mL. Vascular flow is present in the left ovary. Intraperitoneal space: No intraperitoneal fluid. Urinary bladder: Dedicated images of the urinary bladder were not obtained. US/US pelvic complete* [id number] IMPRESSION: Vascular structure within the endometrial canal measuring approximately 1.1 cm in diameter with marked internal color Doppler flow and adjacent smaller vascular appearing structures. Findings are concerning for retained products of conception however other etiologies including uterine arteriovenous malformation are also consideration. Correlate and follow-up as clinically indicated.
[2023-06-02 20:01] LABS: Basophils # 0.1 10^3/uL (0.0-0.1); Basophils % 0.7 %; Eosinophils # 0.2 10^3/uL (0.0-0.8); Eosinophils % 2.3 %; Hematocrit 31.1 % (37.0-47.0); Hemoglobin 9.5 g/dL (11.5-15.3); Lymphocytes # 3.1 10^3/uL (0.8-4.8); Lymphocytes % 37.1 %; Mean Corpuscular HGB Conc 30.5 g/dL (30.0-36.0); Mean Corpuscular Hemoglobin 27.5 pg (28.0-34.0); Mean Corpuscular Volume 90.1 fl (81-99); Mean Platelet Volume 10.4 fL (7.4-10.4); Monocytes # 0.4 10^3/uL (0.2-0.9); Monocytes % 4.5 %; Neutrophils # 4.64 10^3/uL (1.8-7.7); Nucleated Red Blood Cells % 0 %; Platelet Count 454 10^3/cmm (130-400); Red Blood Count 3.45 10^6/uL (4.1-5.3); Red Cell Distribution Width 16.5 % (12.1-15.1); White Blood Count 8.4 10^3/uL (4.0-10.0)
[2023-06-02] MEDS: sodium chloride 0.9% 1,000 ML 999 ML IV (20:11)
[2023-06-02 20:15] VITALS: BP 117/87; PULSE 79; RESP 16; O2SAT 98
[2023-06-02 20:24] LABS: Alanine Aminotransferase 20 U/L (0-33); Alkaline Phosphatase 123 U/L (35-105); Anion Gap 14.8 (5-19); Aspartate Amino Transferase 20 U/L (0-32); Blood Urea Nitrogen 12 mg/dL (6-20); Calcium 9.2 mg/dL (8.5-10.5); Carbon Dioxide 24 mmol/L (22-29); Chloride 103 mmol/L (98-107); Globulin 2.8 g/dL (1.3-4.6); Glomerular Filtration Rate 99.6 mL/min (90-130); Glucose 88 mg/dL (65-115); Osmolality Calculated 285 mOsm/kg (285-295); Potassium 3.8 mmol/L (3.5-5.1); Sodium 138 mmol/L (136-145); Total Bilirubin 0.2 mg/dL (0.15-1.2); Total Protein 6.8 g/dL (6.6-8.7)
[2023-06-02 21:34] VITALS: BP 123/74; PULSE 73; RESP 16; O2SAT 99
[2023-06-02 23:13] VITALS: BP 123/74; PULSE 73; RESP 16; TEMP 37; O2SAT 99
== END 2023-06-02 23:16 | disposition home or self-care (01) ==
PROVIDERS: Emergency Provider Emergency Medicine; PCP Family Medicine
DX: O72.1 Other immediate postpartum hemorrhage (principal)
CPT/HCPCS: 76856; 80053; 85025; 86850; 86900; 96360; 96361; 99284; E0352; J7030

== ENCOUNTER 2023-06-03 09:34 | Inpatient (IN) | payer BC, SELFPAY ==
[2023-06-03] VITALS (28 sets, daily range): BP systolic 74–122; BP diastolic 47–89; PULSE 68–110; RESP 14–22; TEMP 36.4–37.2; O2SAT 95–100; BMI 26.5
--- NOTE | 2023-06-03 09:36 | W.ED.FEMALGU ---
HPI - Female Genitourinary General: Chief complaint: Vaginal Bleeding Stated complaint: 13 weeks pp, vag bleeding Time Seen by Provider: 06/03/23 09:34 History of Present Illness: 28-year-old lady with history of anemia presents to the emergency department for evaluation of syncope and recurrent vaginal bleeding. She is currently 13 days . She had a vacuum-assisted vaginal delivery at 40 weeks 5 days with third-degree laceration. She had been doing well and then had bleeding and increased discomfort yesterday and presented to the emergency department. She was found to have some evidence of small amount of retained products though after discussion with OB and PCP patient was satisfactory for continued outpatient management given no active bleeding. She reports bleeding again starting this morning at 745 without known specific provoking factor. She is soaked through 4 heavy pads. She had episode of syncope. She reports feeling warm and getting up to go to the sink and then syncopized. No reported trauma as she was helped back to the toilet. No other specific changes in health, exacerbating, or alleviating factors identified. Onset (ago): day(s) Vaginal bleeding: heavy Review of Systems General: Reports: 10 or more systems reviewed and unremarkable except in HPI and below PFSH ED PFSH: Medical History Depression History of duodenal atresia Repaired as an infant Hx of herpes genitalis Surgical History H/O oral surgery History of intestinal surgery Duodenal atresia repair as an infant S/P myringotomy with insertion of tube S/P tonsillectomy and adenoidectomy Family History Grandfather Hypertension maternal Diabetes maternal Heart disease maternal Hyperlipidemia maternal Colon cancer paternal Grandmother Hypertension maternal Social History Smoking and tobacco status: never smoked Alcohol intake: current Alcohol intake frequency: holidays/special occasions only Substance/Drug Use: never Physical Exam Const: COMMON NORMALS: alert GENERAL APPEARANCE: cooperative and well developed HENMT: COMMON NORMALS: normocephalic and atraumatic HEAD & SCALP: normocephalic and atraumatic Eye: COMMON NORMALS: conjunctivae normal CONJUNCTIVA: Yes conjunctivae normal SCLERA: sclerae normal Neck/C-Spine: COMMON NORMALS: supple GENERAL: Yes trachea midline Resp: COMMON NORMALS: clear to auscultation bilaterally EFFORT & INSPECTION: Yes able to speak in complete sentences AUSCULTATION: clear to auscultation bilaterally Cardio: COMMON NORMALS: regular rhythm RATE: tachycardic RHYTHM: regular rhythm GI: COMMON NORMALS: Soft to palpation PALPATION: Yes Soft to palpation and No Tenderness to palpation present (GI) Extremity: GENERAL: Yes normal exam except as noted and No edema Neuro: COMMON NORMALS: moves all extremities SENSORIUM/ORIENTATION: Yes alert and No Orientation impaired Psych: COMMON NORMALS: mental status grossly normal and Normal thought process present THOUGHT PROCESS: Normal thought process present Course Vital Signs: Vital signs: Vital Signs Temperature 98.3 F 06/05/23 11:26 Pulse Rate 70 06/05/23 07:40 Respiratory Rate 17 06/05/23 11:26 Blood Pressure 103/71 06/05/23 11:26 Pulse Oximetry 97 06/05/23 11:26 Oxygen Delivery Me thod Room Air 06/04/23 11:29 Oxygen Flow Rate 6 06/03/23 16:20 MDM - Female Medical Decision Making 28-year-old lady presenting with vaginal bleeding associated with syncope. Exam as above. Nontoxic and satisfactory vital signs at this point. EKG demonstrates sinus rhythm, normal axis and intervals, no STEMI. Hematologic panel with mildly decreasing hemoglobin though still above transfusion range at this time. Patient reports improvement in active bleeding and does not show evidence of massive hemorrhage. Metabolic panel with likely some degree of metabolic stress. Normal electrolytes. TABLE LEVER OPERATOR service consulted and came to about the patient. Plan to take patient for D&C. During ED course patient treated with IV fluids. The results of ED evaluation were discussed with the patient including plan for transfer to OB for operative intervention due to requirement for level of care not available if discharged to prevent significant worsening/deterioration. Patient agreeable with plan. Medical Records I reviewed the patient's medical records. Lab Data I reviewed the patient's lab results. 06/05/23 10:50 06/03/23 09:10 Radiology Impressions Abdomen/Pelvis CT 06/05/23 03:20 IMPRESSION: 1. Suspect prominent fluid/blood in the endometrial canal, see above details/discussion. 2. No intraperitoneal fluid/blood, or intraperitoneal hematoma. 3. Somewhat distended stomach. 4. Small amount of gas in the urinary bladder, see above. 5. Normal appendix. 6. Other findings discussed above. Laboratory Results WBC 8.4 10^3/uL (4.0-10.0) 06/03/23 09:10 RBC 3.11 10^6/uL (4.1-5.3) L 06/03/23 09:10 Hgb 7.0 g/dL (11.5-15.3) L 06/03/23 14:01 Hct 22.9 % (37.0-47.0) L 06/03/23 14:01 MCV 92.0 fl (81-99) 06/03/23 09:10 MCH 28.3 pg (28.0-34.0) 06/03/23 09:10 MCHC 30.8 g/dL (30.0-36.0) 06/03/23 09:10 RDW 16.9 % (12.1-15.1) H 06/03/23 09:10 Plt Count 432 10^3/cmm (130-400) H 06/03/23 09:10 MPV 10.7 fL (7.4-10.4) H 06/03/23 09:10 Neut % (Auto) 68.6 % 06/03/23 09:10 Lymph % (Auto) 24.2 % 06/03/23 09:10 [place] % (Auto) 3.8 % 06/03/23 09:10 Eos % (Auto) 2.2 % 06/03/23 09:10 Baso % (Auto) 0.7 % 06/03/23 09:10 Neut # (Auto) 5.73 10^3/uL (1.8-7.7) 06/03/23 09:10 Lymph # (Auto) 2.0 10^3/uL (0.8-4.8) 06/03/23 09:10 [place] # (Auto) 0.3 10^3/uL (0.2-0.9) 06/03/23 09:10 Eos # (Auto) 0.2 10^3/uL (0.0-0.8) 06/03/23 09:10 Baso # (Auto) 0.1 10^3/uL (0.0-0.1) 06/03/23 09:10 Nucleated RBC % (auto) 0 % 06/03/23 09:10 Nucleated RBCs # 0.0 /100WBC 06/03/23 09:10 PT 14.10 SECONDS (12.1-14.9) 06/03/23 09:10 INR 1.06 (0.8-1.2) 06/03/23 09:10 APTT 26.6 SECONDS (23.9-36.7) 06/03/23 09:10 Sodium 138 mmol/L (136-145) 06/03/23 09:10 Potassium 4.0 mmol/L (3.5-5.1) 06/03/23 09:10 Chloride 109 mmol/L (98-107) H 06/03/23 09:10 Carbon Dioxide 16 mmol/L (22-29) L 06/03/23 09:10 Anion Gap 17.0 (5-19) 06/03/23 09:10 BUN 15 mg/dL (6-20) 06/03/23 09:10 Creatinine 0.7 mg/dL (0.5-0.9) 06/03/23 09:10 GFR Calculation 99.6 mL/min (90-130) 06/03/23 09:10 Glucose 85 mg/dL (65-115) 06/03/23 09:10 Calculated Osmolality 286 mOsm/kg (285-295) 06/03/23 09:10 Calcium 8.3 mg/dL (8.5-10.5) L 06/03/23 09:10 Total Bilirubin 0.2 mg/dL (0.15-1.2) 06/03/23 09:10 AST 17 U/L (0-32) 06/03/23 09:10 ALT 17 U/L (0-33) 06/03/23 09:10 Alkaline Phosphatase 95 U/L (35-105) 06/03/23 09:10 Total Protein 5.8 g/dL (6.6-8.7) L 06/03/23 09:10 Albumin 3.1 g/dL (3.5-5.2) L 06/03/23 09:10 Globulin 2.7 g/dL (1.3-4.6) 06/03/23 09:10 TSH 2.47 uIU/mL (0.27-4.20) 06/03/23 09:10 Blood Type O Positive 06/03/23 14:01 Rho(D) Type Positive 06/03/23 14:01 Antibody Screen Negative 06/03/23 14:01 Crossmatch See Detail 06/03/23 14:01 Discharge Plan Discharge Patient Disposition: Admitted As Inpatient Admit Provider: Oseas Arreguin Clinical Impression: Vaginal bleeding Condition: Stable Coding Level of Care Code ED Public Service Officer for Shell Rubio
--- NOTE | 2023-06-03 09:39 | ECG_ITS ---
[facility] Test Date: 2023-06-03 Pat Name: Anderson Breaux Department: Room: Gender: Female Agricultural Production Engineer: : 1995 Requested By: Yoel Carbajal Order Number: [id number] Osman MD: Grzegorz Lazaro M.D. Measurements Intervals [place] Rate: 95 P: 75 TX: 135 QRS: 89 QRSD: 72 T: 68 QT: 348 QTc: 439 Interpretive Statements SINUS RHYTHM NONSPECIFIC T-WAVE ABNORMALITY No previous ECG available for comparison Electronically Signed On 06-03-2023 11:42:24 CDT by Grzegorz Lazaro M.D. [id number]
--- NOTE | 2023-06-03 10:16 | PC.PHAR ---
pt states she is not taking valacyclovir 500mg bid filled 05/20/23 28d/s or acyclovir 400mg tid filled 05/19/23 30d/s-pt states she has just been taking ibu 200mg taking 600mg pt had rx filled 05/23/23 20d/s 1 tab tid-pt states she is taking colace instead of senokot
[2023-06-03 10:23] LABS: Basophils # 0.1 10^3/uL (0.0-0.1); Basophils % 0.7 %; Eosinophils # 0.2 10^3/uL (0.0-0.8); Eosinophils % 2.2 %; Hematocrit 28.6 % (37.0-47.0); Hemoglobin 8.8 g/dL (11.5-15.3); Lymphocytes % 24.2 %; Mean Corpuscular HGB Conc 30.8 g/dL (30.0-36.0); Mean Corpuscular Hemoglobin 28.3 pg (28.0-34.0); Mean Platelet Volume 10.7 fL (7.4-10.4); Monocytes # 0.3 10^3/uL (0.2-0.9); Monocytes % 3.8 %; Neutrophils # 5.73 10^3/uL (1.8-7.7); Neutrophils % 68.6 %; Nucleated Red Blood Cells % 0 %; Platelet Count 432 10^3/cmm (130-400); Red Blood Count 3.11 10^6/uL (4.1-5.3); Red Cell Distribution Width 16.9 % (12.1-15.1); White Blood Count 8.4 10^3/uL (4.0-10.0)
[2023-06-03 10:49] LABS: INR 1.06 (0.8-1.2)
[2023-06-03 10:50] LABS: Partial Thromboplastin Time 26.6 SECONDS (23.9-36.7)
[2023-06-03 10:51] LABS: Alanine Aminotransferase 17 U/L (0-33); Albumin Level 3.1 g/dL (3.5-5.2); Alkaline Phosphatase 95 U/L (35-105); Aspartate Amino Transferase 17 U/L (0-32); Blood Urea Nitrogen 15 mg/dL (6-20); Calcium 8.3 mg/dL (8.5-10.5); Carbon Dioxide 16 mmol/L (22-29); Chloride 109 mmol/L (98-107); Globulin 2.7 g/dL (1.3-4.6); Glomerular Filtration Rate 99.6 mL/min (90-130); Glucose 85 mg/dL (65-115); Osmolality Calculated 286 mOsm/kg (285-295); Sodium 138 mmol/L (136-145); Thyroid Stimulating Hormone 2.47 uIU/mL (0.27-4.20); Total Bilirubin 0.2 mg/dL (0.15-1.2); Total Protein 5.8 g/dL (6.6-8.7)
--- NOTE | 2023-06-03 11:05 | PC.NURSE ---
Dr Arreguin at bedside with patient. Consent for surgery signed at this time
[2023-06-03] MEDS: sodium chloride 0.9% 1,000 ML 999 ML IV (11:37)
--- NOTE | 2023-06-03 12:30 | P.HP_ITS ---
Providers/Chief Complaint Admitting Physician: Oseas Arreguin MD Primary Care Provider: Jim Vasquez MD Chief Complaint: 13 weeks pp, vag bleeding HPI CAMP MANAGER History of Present Illness 28 y.o. s/p May 21, 2023 had an episode of heavy vaginal bleeding last night was seen in the ER bleeding had stopped by that time pelvic sono last night showed 1 cm ?vascular mass? in the uterus It was decided to follow patient clinically Patient returns to ER this morning Had another episode of heavy vaginal bleeding this a.m. 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 T&A Meds: iron Colace Present Details : 1 Para: 1 Medications/Allergies Home Medications Medication Instructions Recorded Confirmed Last Taken Type Breast pump #1 ea 01/18/23 06/03/23 Unknown Rx ferrous sulfate 325 mg (65 mg 325 mg PO BIDWM #60 tabs 05/23/23 06/03/23 06/02/23 Rx iron) tablet,delayed release hydrocodone 5 mg-acetaminophen 325 1 - 2 tab PO Q6H PRN Moderate To 05/23/23 06/03/23 Unknown Rx mg tablet Severe Pain #10 tabs acetaminophen 500 mg tablet 500 mg PO Q6H PRN Pain 06/03/23 06/03/23 Unknown History docusate sodium 100 mg capsule 100 mg PO BID 06/03/23 06/03/23 Unknown History (Colace) ibuprofen 200 mg tablet 600 mg PO Q6H PRN Pain 06/03/23 06/03/23 Unknown History vit no.95-ferrous 1 tab PO QAM 06/03/23 06/03/23 06/02/23 History fumarate 28 mg-folic acid 800 mcg tablet ( Multivitamins) Allergies Allergy/AdvReac Type Severity Reaction Status Date / Time No Known Allergies Allergy Verified 06/03/23 10:18 PFS CAMP MANAGER PFSH: Medical History Depression History of duodenal atresia Repaired as an infant Hx of herpes genitalis Surgical History H/O oral surgery History of intestinal surgery Duodenal atresia repair as an S/P myringotomy with insertion of tube S/P tonsillectomy and adenoidectomy Family History Grandfather Hypertension maternal Diabetes maternal Heart disease maternal Hyperlipidemia maternal Colon cancer paternal Grandmother Hypertension maternal Social History Smoking and tobacco status: never smoked Alcohol intake: current Alcohol intake frequency: holidays/special occasions only Substance/Drug Use: never Other Female Reproductive History: Hx Age of Menarche: 9 Cycle Length: regular and monthly, Bleeding duration: 3-5 days. History History History 1 Term 0 0 Miscarriages/Ectopic 0 Living Children 0 Past Pregnancies Del. Date GA/Weeks Outcome Route Wt Inf Gender Labor Lgth Comp. Anesth esia Location 05/21/23 40 live - full term Opperative 7 lb 6 oz Female 16 hr Third degree laceration [facility] Delivery Date: 05/21/23 Last Updated by: Trevon Castillo MD Third-degree laceration, vacuum-assisted vaginal delivery, OP delivery. Care JASON Calculator Estimated Delivery Date Method Current WG Current Estimate 05/17/23 LMP (Certain) 42w 3d Other Estimates 05/17/23 Ultrasound #1 42w 3d Vitals/I&O/Wt Last Vital Signs Temp 98.1 F 06/03/23 09:41 Pulse 99 06/03/23 11:45 Resp 17 06/03/23 11:45 BP 99/74 06/03/23 11:45 Pulse Ox 100 06/03/23 11:45 O2 Del Method Room Air 06/03/23 09:41 Weight last 48 hrs Weight 150 lb Physical Exam Narrative: Weight 150 lbs; 5?3? Comfortable, awake, alert, appropriate Afebrile, VS normal Lungs: clear Cor: RRR Abd: soft, nontender Ext: normal Data 06/03/23 09:10 06/03/23 09:10 A&P Assessment and plan (1) bleeding: Delayed hemorrhage Possible retained placental lobe vs. subinvolution of uterus Anemia Recommend suction curettage of uterus Procedure and risks explained to patient, including risks of infection, bleeding, injury to uterus such as perforation; risks of anesthesia; risks of blood tranfusions if needed Patient understands and wants to proceed Attestations Medical Necessity Statement*: patient s/p May 21, 2023 with hemorrhage Coding Level of Care Code Acute Code for Chg Fwd Diagnoses bleeding O72.1 Time Spent (min) 45
--- NOTE | 2023-06-03 12:44 | PC.NURSE ---
Surgery here to get patient at this time
[2023-06-03 14:24] LABS: Hematocrit 22.9 % (37.0-47.0)
[2023-06-03] MEDS: sodium chloride 0.9% 1,000 ML 30 ML IV (14:24)
[2023-06-03] MEDS: methylergonovine 0.2 mg/mL INJ 1 mL IM (15:03)
[2023-06-03] MEDS: carboprost tromethamine 250 mcg/mL Amp IM (15:14)
--- NOTE | 2023-06-03 15:18 | ANES.PREANE2 ---
Pre-Anesthetic Assessment Height/Weight: Height 1.6 m Weight 68.039 kg Temp Pulse Resp BP Pulse Ox O2 Del Method 98.1 F 82 16 83/64 100 Room Air 06/03/23 09:41 06/03/23 12:44 06/03/23 12:44 06/03/23 12:44 06/03/23 12:44 06/03/23 09:41 Operation Date: 06/03/23 14:00 Proposed Procedures p Dilation And Curettage (D&C)(Not Applicable) - Oseas Arreguin MD Familial anesthetic complications: none Was Beta Marylou taken within 24 hours: N/A Was Clonidine taken within 24 hours: N/A Social No alcohol and No tobacco Exam alert, oriented x 3, clear to auscultation bilaterally and regular rate & rhythm Airway Submandibular: within normal limits Cervical ROM: within normal limits Mallampati: Class II Dentition: full CV/HEM Anemia Anesthetic Plan ASA status: 2E Anesthesia: General Medications/Allergies Home Medications Medication Instructions Recorded Confirmed Last Taken Type Breast pump #1 ea 01/18/23 06/03/23 Unknown Rx ferrous sulfate 325 mg (65 mg 325 mg PO BIDWM #60 tabs 05/23/23 06/03/23 06/02/23 Rx iron) tablet,delayed release hydrocodone 5 mg-acetaminophen 325 1 - 2 tab PO Q6H PRN Moderate To 05/23/23 06/03/23 Unknown Rx mg tablet Severe Pain #10 tabs acetaminophen 500 mg tablet 500 mg PO Q6H PRN Pain 06/03/23 06/03/23 Unknown History docusate sodium 100 mg capsule 100 mg PO BID 06/03/23 06/03/23 Unknown History (Colace) ibuprofen 200 mg tablet 600 mg PO Q6H PRN Pain 06/03/23 06/03/23 Unknown History vit no.95-ferrous 1 tab PO QAM 06/03/23 06/03/23 06/02/23 History fumarate 28 mg-folic acid 800 mcg tablet ( Multivitamins) Allergies Allergy/AdvReac Type Severity Reaction Status Date / Time No Known Allergies Allergy Verified 06/03/23 10:18 Current Medications Generic Name Dose Route Start Last Admin Trade Name Freq PRN Reason Stop Dose Admin Sodium Chloride 1,000 mls @ 30 mls/hr 06/03/23 13:00 06/03/23 14:24 Sodium Chloride 0.9% IV 06/04/23 12:59 30 mls/hr .Q24H GI Administration PFSH Anesthesia Medical History Depression History of duodenal atresia Repaired as an infant Hx of herpes genitalis Surgical History H/O oral surgery History of intestinal surgery Duodenal atresia repair as an S/P myringotomy with insertion of tube S/P tonsillectomy and adenoidectomy Family History Grandfather Hypertension maternal Diabetes maternal Heart disease maternal Hyperlipidemia maternal Colon cancer paternal Grandmother Hypertension maternal Social History Smoking and tobacco status: never smoked Alcohol intake: current Alcohol intake frequency: holidays/special occasions only Substance/Drug Use: never Female Reproductive History : 1 Data Anesthesia 06/03/23 14:01 06/03/23 09:10 Short CBC 06/03/23 06/03/23 Range/Units 09:10 14:01 WBC 8.4 (4.0-10.0) 10^3/uL Hgb 8.8 L 7.0 L (11.5-15.3) g/dL Hct 28.6 L 22.9 L (37.0-47.0) % MCV 92.0 (81-99) fl Plt Count 432 H (130-400) 10^3/cmm Neut % (Auto) 68.6 % Neut # (Auto) 5.73 (1.8-7.7) 10^3/uL BMP 06/03/23 09:10 Sodium 138 Potassium 4.0 Chloride 109 H Carbon Dioxide 16 L BUN 15 Creatinine 0.7 Glucose 85 Calcium 8.3 L Liver Function 06/03/23 Range/Units 09:10 Total Bilirubin 0.2 (0.15-1.2) mg/dL AST 17 (0-32) U/L ALT 17 (0-33) U/L Alkaline Phosphatase 95 (35-105) U/L Albumin 3.1 L (3.5-5.2) g/dL Coags 06/03/23 09:10 PT 14.10 INR 1.06 APTT 26.6 Cardiac Studies: No Data to Display
[2023-06-03] MEDS: miSOPROStol 200 mcg Tablet 800 MCG PR (15:22)
[2023-06-03] MEDS: tranexamic acid 1,000 mg/10mL SDV 1000 MG IRRIGATION (15:27)
--- NOTE | 2023-06-03 16:14 | PC.NURSE ---
THIS RN HAD MCKENZIE JAUREGUI aprn check the patient for bleeding and pts packing looked normal with a small amount of drainage
--- NOTE | 2023-06-03 17:24 | ANE.PACU2 ---
Inpatient post-anesthesia follow up: Airway intact: Yes Vital signs: Temperature 97.5 F Pulse Rate 79 Respiratory Rate 17 Blood Pressure 100/66 Pulse Oximetry 98 Oxygen Delivery Me thod Room Air Oxygen Flow Rate 6 Fraction of Inspir ed Oxygen Hydration adequate: Yes Nausea and vomiting: No Pain level: 3 Mental status: Baseline
--- NOTE | 2023-06-03 17:28 | PM.OP ---
Operative Report Date of procedure: June 03, 2023 Pre-op diagnosis: delayed hemorrhage Post-op diagnosis: same Post-op findings: Brisk bleeding noted from two sources ? 1. Uterus ? 2. 3 cm area of vascular mass from vagina posterior to cervix, possibly ? an area of AVM or hemangioma ? Methergine 0.2 mg IM given ? Pitocin given IV ? Hemabate 250 ug given IM ? TXA 1 gm given IV ? Cytotec 800 ug given rectally ? Manual pressure applied to vaginal vascular area ? Bleeding stopped at end of case prior to application of vaginal packing Procedure done: suction curettage of uterus Packing of vagina Specimens removed/disposition: uterine curettings Surgeon: Oseas Arreguin MD System Safety Manager: Arabella Stoddard MD Anesthesia: General Estimated blood loss (mL): 800 Estimated blood loss: patient received one U of PRBCs Complications: none Condition: stable Brief History: 28 y.o. s/p May 21, 2023 with delayed heavy hemorrhage Procedure: Informed consent signed Patient taken to OR, placed supine on the table.? General anesthesia was induced.? The patient was placed in dorsolithotomy position.? The perineum was prepped and draped in the usual fashion.? A speculum was placed in the vagina.? There was brisk bleeding noted from two sources, one via the cervical os from the uterus.? The other was a 3 cm vascular area from the vaginal area posterior to the cervix.? The uterus was sounded to 12 cm.? A suction curette was used to empty the contents of the uterus.? Minimal tissue was seen.? Pitocin IV, Methergine 0.2 mg IM, TXA 1 gm IV, Hemabate 250 ug IM, and Cytotec 800 ug rectally were given.? The bleeding via the uterus was stopped. Brisk bleeding continued from the vaginal vascular area.? Manual pressure was applied with 4x4 sponges.? After 15 minutes of pressure, bleeding was very well controlled.? Minimal oozing was then noted.? A large vaginal packing was then placed. Patient received one unit of PRBCs. The patient was then placed supine, awakened, and taken to the recovery room.? Plan is to admit the patient for close observation and serial Hgb checks. Postoperative condition:? stable EBL:? 800? cc Complications:? none Sponge and instrument counts correct x two
[2023-06-03] MEDS: dextrose 5%-lactated ringers 1,000 ML 125 ML IV (19:47)
[2023-06-03] MEDS: ketorolac 30 mg/mL INJ IVP (19:47)
[2023-06-03] MEDS: docusate sodium 100 mg Capsule PO (19:47)
[2023-06-03] MEDS: ferrous sulfate EC 325 mg Tablet PO (20:39)
[2023-06-03 21:30] LABS: Hematocrit 24.7 % (37.0-47.0); Hemoglobin 7.6 g/dL (11.5-15.3); Mean Corpuscular HGB Conc 30.8 g/dL (30.0-36.0); Mean Corpuscular Hemoglobin 27.8 pg (28.0-34.0); Mean Corpuscular Volume 90.5 fl (81-99); Mean Platelet Volume 10.3 fL (7.4-10.4); Platelet Count 306 10^3/cmm (130-400); Red Blood Count 2.73 10^6/uL (4.1-5.3); Red Cell Distribution Width 16.6 % (12.1-15.1); White Blood Count 11.4 10^3/uL (4.0-10.0)
[2023-06-04 00:15] VITALS: BP 93/55; PULSE 71; RESP 16; TEMP 37.2; O2SAT 96
[2023-06-04 01:00] VITALS: BP 94/58; PULSE 65; RESP 17; O2SAT 97
[2023-06-04] MEDS: acetaminophen 325 mg Tablet 650 MG PO ×2 (02:12→07:52)
[2023-06-04] MEDS: dextrose 5%-lactated ringers 1,000 ML 125 ML IV ×2 (05:51→16:14)
[2023-06-04 06:39] LABS: Basophils % 0.3 %; Eosinophils % 0.1 %; Hematocrit 26.2 % (37.0-47.0); Hemoglobin 8.1 g/dL (11.5-15.3); Lymphocytes # 2.1 10^3/uL (0.8-4.8); Lymphocytes % 20.3 %; Mean Corpuscular HGB Conc 30.9 g/dL (30.0-36.0); Mean Corpuscular Hemoglobin 28.5 pg (28.0-34.0); Mean Corpuscular Volume 92.3 fl (81-99); Mean Platelet Volume 10.5 fL (7.4-10.4); Monocytes # 0.6 10^3/uL (0.2-0.9); Monocytes % 5.9 %; Neutrophils # 7.46 10^3/uL (1.8-7.7); Neutrophils % 72.8 %; Nucleated Red Blood Cells % 0 %; Platelet Count 267 10^3/cmm (130-400); Red Blood Count 2.84 10^6/uL (4.1-5.3); Red Cell Distribution Width 16.3 % (12.1-15.1); White Blood Count 10.2 10^3/uL (4.0-10.0)
--- NOTE | 2023-06-04 07:04 | PC.NURSE ---
Pad changed this morning with scant amount of blood.
[2023-06-04 07:35] VITALS: BP 94/61; PULSE 100; RESP 16; TEMP 36.8; O2SAT 94
[2023-06-04] MEDS: ferrous sulfate EC 325 mg Tablet PO ×2 (07:53→18:34)
[2023-06-04] MEDS: docusate sodium 100 mg Capsule PO ×2 (07:53→18:34)
[2023-06-04 11:29] VITALS: BP 92/55; PULSE 90; RESP 16; TEMP 37.1; O2SAT 98
[2023-06-04 14:20] LABS: Basophils % 0.4 %; Eosinophils # 0.1 10^3/uL (0.0-0.8); Eosinophils % 0.9 %; Hematocrit 25.9 % (37.0-47.0); Hemoglobin 8.3 g/dL (11.5-15.3); Lymphocytes # 2.4 10^3/uL (0.8-4.8); Lymphocytes % 23.5 %; Mean Corpuscular Hemoglobin 28.9 pg (28.0-34.0); Mean Corpuscular Volume 90.2 fl (81-99); Mean Platelet Volume 10.8 fL (7.4-10.4); Monocytes # 0.5 10^3/uL (0.2-0.9); Monocytes % 4.6 %; Neutrophils # 7.21 10^3/uL (1.8-7.7); Neutrophils % 70.2 %; Nucleated Red Blood Cells % 0 %; Platelet Count 278 10^3/cmm (130-400); Red Blood Count 2.87 10^6/uL (4.1-5.3); Red Cell Distribution Width 16.8 % (12.1-15.1); White Blood Count 10.3 10^3/uL (4.0-10.0)
[2023-06-04] MEDS: ibuprofen 800 mg tablet PO ×2 (14:21→21:46)
[2023-06-04 15:42] VITALS: BP 99/59; PULSE 96; RESP 16; TEMP 36.8; O2SAT 96
--- NOTE | 2023-06-04 17:05 | PM.PN ---
Subjective Subjective: The patient reports that she has done well today. She has gotten up to stand and she had a small amount of bleeding. She had a second unit of blood transfused and her hemoglobin has remained stable. Vitals/I&O/Wt Last Vital Signs Temp 98.2 F 06/04/23 15:42 Pulse 96 06/04/23 15:42 Resp 16 06/04/23 15:42 BP 99/59 06/04/23 15:42 Pulse Ox 96 06/04/23 15:42 O2 Del Method Room Air 06/04/23 11:29 O2 Flow Rate 6 06/03/23 16:20 06/04/23 06/04/23 06/04/23 06:59 14:59 22:59 Intake Total 1350 / 5950 1209 / 1209 277.083 / 1486.083 Output Total 400 / 1900 900 / 900 Balance 950 / 4050 309 / 309 277.083 / 586.083 Weight last 48 hrs Weight 150 lb Physical Exam Narrative: The patient looks well today. She is tolerating a regular diet and has had minimal bleeding. Const: COMMON NORMALS: no acute distress, average body habitus, patient oriented x3, no limitations, healthy appearing, alert and well nourished GENERAL APPEARANCE: cooperative, comfortable, well kempt and well developed ORIENTATION/CONSCIOUSNESS: Yes awake, Yes oriented to person, Yes oriented to place and Yes oriented to time Resp: COMMON NORMALS: normal respiratory effort EFFORT & INSPECTION: Yes able to speak in complete sentences GI: COMMON NORMALS: Soft to palpation and non-tender PALPATION: Yes Soft to palpation : OTHER: packing removed and a foul odor present. Discussed with patient that I would like to place her on antibiotics to treat for possible uterine/vaginal infection. Extremity: COMMON NORMALS: no calf tenderness Neuro: COMMON NORMALS: patient oriented x3 SENSORIUM/ORIENTATION: Yes alert, Yes oriented to person, Yes oriented to place and Yes oriented to time Psych: APPEARANCE: Yes well kempt Urinary Catheter Management: Abraham Latex: Cath Placed During This Visit: yes Reason for Continuing Indwelling Catheter: Perioperative Use in Selected Surgeries Urinary Catheter Date of Insertion: 06/03/23 Urinary Catheter Time of Insertion: 16:42 Data 06/04/23 13:36 06/03/23 09:10 A&P Assessment and plan (1) bleeding: packing removed. foul odor present upon removal. Plan to start rocephin and flagyl to treat any bacteria that are causing odor Patient to move about room normally. We will monitor bleeding closely possibly home tomorrow if bleeding controlled. Attestations Medical Necessity Statement*: The patient is not stable for discharge yet. Monitor vaginal bleeding overnight and treat infection. If she is improved in the morning, then plan for discharge. Coding Level of Care Code Acute Code for Chg Fwd Diagnoses bleeding O72.1
[2023-06-04] MEDS: cefTRIAXone 2,000 MG in sodium chloride 0.9% (plus) 50 ML 100 MG IV (18:33)
[2023-06-04 18:55] LABS: Basophils # 0.1 10^3/uL (0.0-0.1); Basophils % 0.6 %; Eosinophils # 0.2 10^3/uL (0.0-0.8); Eosinophils % 1.8 %; Hematocrit 26.5 % (37.0-47.0); Hemoglobin 8.5 g/dL (11.5-15.3); Lymphocytes # 2.7 10^3/uL (0.8-4.8); Lymphocytes % 24.4 %; Mean Corpuscular HGB Conc 32.1 g/dL (30.0-36.0); Mean Corpuscular Hemoglobin 28.5 pg (28.0-34.0); Mean Corpuscular Volume 88.9 fl (81-99); Mean Platelet Volume 10.6 fL (7.4-10.4); Monocytes # 0.7 10^3/uL (0.2-0.9); Neutrophils # 7.42 10^3/uL (1.8-7.7); Neutrophils % 66.8 %; Nucleated Red Blood Cells % 0 %; Platelet Count 301 10^3/cmm (130-400); Red Blood Count 2.98 10^6/uL (4.1-5.3); Red Cell Distribution Width 16.8 % (12.1-15.1); White Blood Count 11.1 10^3/uL (4.0-10.0)
[2023-06-04 20:00] VITALS: BP 100/63; PULSE 80; RESP 17; TEMP 36.3; O2SAT 98
[2023-06-04] MEDS: metroNIDAZOLE 500 MG Tablet PO (21:46)
[2023-06-04 22:04] LABS: Basophils # 0.1 10^3/uL (0.0-0.1); Basophils % 0.6 %; Eosinophils # 0.2 10^3/uL (0.0-0.8); Eosinophils % 2.4 %; Hematocrit 23.9 % (37.0-47.0); Hemoglobin 7.6 g/dL (11.5-15.3); Lymphocytes # 2.4 10^3/uL (0.8-4.8); Mean Corpuscular HGB Conc 31.8 g/dL (30.0-36.0); Mean Corpuscular Hemoglobin 28.3 pg (28.0-34.0); Mean Corpuscular Volume 88.8 fl (81-99); Mean Platelet Volume 10.4 fL (7.4-10.4); Monocytes # 0.6 10^3/uL (0.2-0.9); Monocytes % 5.8 %; Neutrophils # 6.21 10^3/uL (1.8-7.7); Neutrophils % 65.8 %; Nucleated Red Blood Cells % 0 %; Platelet Count 264 10^3/cmm (130-400); Red Blood Count 2.69 10^6/uL (4.1-5.3); Red Cell Distribution Width 16.9 % (12.1-15.1); White Blood Count 9.5 10^3/uL (4.0-10.0)
[2023-06-05] VITALS (8 sets, daily range): BP systolic 99–120; BP diastolic 53–80; PULSE 63–82; RESP 16–18; TEMP 36.6–36.9; O2SAT 95–98
[2023-06-05 02:35] LABS: Basophils # 0.1 10^3/uL (0.0-0.1); Basophils % 0.7 %; Eosinophils # 0.3 10^3/uL (0.0-0.8); Eosinophils % 3.8 %; Hematocrit 25.6 % (37.0-47.0); Hemoglobin 8.1 g/dL (11.5-15.3); Lymphocytes # 2.5 10^3/uL (0.8-4.8); Lymphocytes % 29.9 %; Mean Corpuscular HGB Conc 31.6 g/dL (30.0-36.0); Mean Corpuscular Hemoglobin 28.3 pg (28.0-34.0); Mean Corpuscular Volume 89.5 fl (81-99); Mean Platelet Volume 10.6 fL (7.4-10.4); Monocytes # 0.4 10^3/uL (0.2-0.9); Monocytes % 4.9 %; Neutrophils # 5.05 10^3/uL (1.8-7.7); Neutrophils % 60.2 %; Nucleated Red Blood Cells % 0 %; Platelet Count 292 10^3/cmm (130-400); Red Blood Count 2.86 10^6/uL (4.1-5.3); Red Cell Distribution Width 16.7 % (12.1-15.1); White Blood Count 8.4 10^3/uL (4.0-10.0)
--- NOTE | 2023-06-05 03:20 | CTR_ITS ---
PROCEDURE INFORMATION: Exam: CT Abdomen And Pelvis With Contrast Exam date and time: 06/05/2023 4:57 AM Age: 28 years old Clinical indication: Other: Anemia/vaginal bleeding; Patient HX: Persistent vaginal bleeding and anemia fifteen days post . Uterine curettage on 06/03/2023. Concern for retained products or avm noted on pelvic ultrasound from 06/02/2023. ; Additional info: Post-op anemia TECHNIQUE: Imaging protocol: Computed tomography of the abdomen and pelvis with contrast. Radiation optimization: All CT scans at this facility use at least one of these dose optimization techniques: automated exposure control; mA and/or kV adjustment per patient size (includes targeted exams where dose is matched to clinical indication); or iterative reconstruction. Contrast material: OMNI 350; Contrast volume: 100 ml; Contrast route: INTRAVENOUS (IV); REPORTING DATA: Count of CT and Cardiac NM exams in prior 12 months: This patient has received 0 known CTs and 0 known cardiac nuclear medicine studies in the 12 months prior to the current study. COMPARISON: US pelvic complete* [id number] 06/02/2023 9:36 PM RADIATION DOSE METRICS: Total DLP (mGy-cm): 524.6 FINDINGS: Lungs: The lung bases are clear. Liver: Unremarkable. Gallbladder and bile ducts: No definite gallbladder abnormality by CT. No biliary tree dilation. Pancreas: Unremarkable. Spleen: Unremarkable. Adrenal glands: Unremarkable. Kidneys and ureters: Unremarkable. Stomach and bowel: The stomach appears somewhat distended at the time of scanning. Please correlate clinically. No significant bowel distention. There are no CT findings to strongly suggest diverticulitis. Appendix: The appendix is visualized and appears normal. Intraperitoneal space: No intraperitoneal fluid/blood, or intraperitoneal hematoma. No free intraperitoneal air. Vasculature: No evidence for abdominal aortic aneurysm. Lymph nodes: No retroperitoneal adenopathy. Urinary bladder: Small amount of gas in the urinary bladder. This is likely secondary to recent catheterization. If that has not been performed, this could indicate evidence for bladder infection, or less likely fistula to the urinary bladder. Reproductive: The uterus measures about 11 cm in length, transverse diameter up to 8.5 cm. Prominent low-attenuation in the central uterus, likely representing fluid/blood in the endometrial canal. Endometrial thickening probably less likely given relatively normal endometrial thickness on the recent ultrasound exam. This fluid/blood measures about 6 cm in length, with AP and transverse dimensions of 3 x 5 cm. There is no visible gas in the uterus to strongly suggest endometritis. Please correlate clinically. No significant cul-de-sac or free pelvic fluid. No definite abnormal ovarian/adnexal cyst or mass by CT. Bones/joints: No significant acute finding. Soft tissues: No significant acute finding. CT/CT abdomen pelvis w con* 10003 IMPRESSION: 1. Suspect prominent fluid/blood in the endometrial canal, see above details/discussion. 2. No intraperitoneal fluid/blood, or intraperitoneal hematoma. 3. Somewhat distended stomach. 4. Small amount of gas in the urinary bladder, see above. 5. Normal appendix. 6. Other findings discussed above.
[2023-06-05] MEDS: ondansetron 2 mg/ML SDV 2 mL 4 MG IVP (04:10)
--- NOTE | 2023-06-05 04:19 | PC.NURSE ---
Dr. Stoddard notified of [address] Stoddard ordered fluids to be decreased to 25 ml/hr and to continue checking CBC Q4 and call her with next hemoglobin. Dr. Stoddard notified for 199 hemoglobin of 8.1 and patient feeling dizzy. Dr. Stoddard ordered 1 unit of blood with recheck of hemoglobin one hour after transfusion and a Abdomen Pelvic CT.
[2023-06-05] MEDS: iohexol 350 mg/mL 500 mL Btl (per mL) IV (04:58)
[2023-06-05] MEDS: ibuprofen 800 mg tablet PO ×2 (05:58→13:44)
[2023-06-05] MEDS: docusate sodium 100 mg Capsule PO (08:01)
[2023-06-05] MEDS: ferrous sulfate EC 325 mg Tablet PO (08:01)
[2023-06-05] MEDS: metroNIDAZOLE 500 MG Tablet PO ×2 (09:13→12:10)
--- NOTE | 2023-06-05 09:32 | PC.NURSE ---
THIS WILDFIRE PREVENTION SPECIALIST GOT ON THIS PATIENTS CHART TO GIVE DR. VILLASENOR UPDATE PER HIS REQUEST.
--- NOTE | 2023-06-05 10:58 | P.PN_ITS ---
Subjective Subjective: The patient has done well overnight. She had some bleeding and a CT scan was performed. It was normal and only showed a prominent endometrium. She was having dizziness upon standing. A third unit of blood was transfused. I am awaiting the most recent CBC. Vitals/I&O/Wt Last Vital Signs Temp 98.5 F 06/05/23 07:40 Pulse 70 06/05/23 07:40 Resp 16 06/05/23 07:40 BP 102/53 06/05/23 07:40 Pulse Ox 96 06/05/23 07:40 O2 Del Method Room Air 06/04/23 11:29 O2 Flow Rate 6 06/03/23 16:20 06/04/23 06/05/23 06/05/23 22:59 06:59 14:59 Intake Total 1358.750 / 2567.750 369.583 / 2937.333 480 / 480 Output Total 350 / 1250 Balance 1008.750 / 1317.750 369.583 / 1687.333 480 / 480 Physical Exam Narrative: The patient appears well today. She states that she had bright red bleeding per vagina and filled 4 pads in 2 hours. She is demanding to be transferred. Const: COMMON NORMALS: no acute distress, average body habitus, patient oriented x3, no limitations, healthy appearing, alert and well nourished GENERAL APPEARANCE: cooperative, comfortable, well kempt and well developed ORIENTATION/CONSCIOUSNESS: Yes awake, Yes oriented to person, Yes oriented to place and Yes oriented to time Resp: COMMON NORMALS: normal respiratory effort EFFORT & INSPECTION: Yes able to speak in complete sentences GI: COMMON NORMALS: Soft to palpation and non-tender PALPATION: Yes Soft to palpation Extremity: COMMON NORMALS: no calf tenderness Neuro: COMMON NORMALS: patient oriented x3 SENSORIUM/ORIENTATION: Yes alert, Yes oriented to person, Yes oriented to place and Yes oriented to time Psych: COMMON NORMALS: mental status grossly normal, Normal thought process present, cooperative, normal affect and speech normal APPEARANCE: Yes well kempt SPEECH: Yes normal speech THOUGHT PROCESS: Normal thought process present Urinary Catheter Management: Abraham Latex: Cath Placed During This Visit: yes, but has since been removed by the nurse Reason for Continuing Indwelling Catheter: Decision to DC Catheter Urinary Catheter Date of Insertion: 06/03/23 Urinary Catheter Time of Insertion: 16:42 Date Urinary Catheter Removed: 06/04/23 Time Urinary Catheter Discontinued: 17:57 Data 06/05/23 10:50 06/03/23 09:10 A&P Assessment and plan (1) bleeding: CT scan normal hemoglobin is rising, however the patient reports being symptommatic. The patient reports soaking 4 pads in 2 hours with bright red blood. transfused another unit of blood overnight. Awaiting most recent CBC Plan to transfer patient to [facility] with Dr. Lemons for care from a specialist. Attestations Medical Necessity Statement*: The patient is being transfered to a different facility Coding Level of Care Code Acute Code for Chg Fwd Diagnoses bleeding O72.1
[2023-06-05 11:31] LABS: Basophils # 0.1 10^3/uL (0.0-0.1); Basophils % 0.8 %; Eosinophils # 0.4 10^3/uL (0.0-0.8); Eosinophils % 4.2 %; Hematocrit 30.9 % (37.0-47.0); Hemoglobin 9.8 g/dL (11.5-15.3); Lymphocytes % 23.1 %; Mean Corpuscular HGB Conc 31.7 g/dL (30.0-36.0); Mean Corpuscular Volume 88.3 fl (81-99); Mean Platelet Volume 10.7 fL (7.4-10.4); Monocytes # 0.4 10^3/uL (0.2-0.9); Monocytes % 5.1 %; Neutrophils # 5.72 10^3/uL (1.8-7.7); Neutrophils % 66.2 %; Nucleated Red Blood Cells % 0 %; Platelet Count 292 10^3/cmm (130-400); White Blood Count 8.6 10^3/uL (4.0-10.0)
--- NOTE | 2023-06-05 11:48 | P.DS_ITS ---
Discharge Providers Date of Admission: 06/03/23 18:19 Date of Discharge: June 05, 2023 Attending Provider at Admission: Oseas Arreguin MD Attending Provider at Discharge: Oseas Arreguin MD Primary Care Provider: Jim Vasquez MD Diagnoses at Discharge Discharge Diagnosis (1) bleeding: Status: Acute Reason for Visit Reason for Visit: 13 weeks pp, vag bleeding Hospital Course Hospital Course The patient was admitted after surgery. She had packing placed during surgery. that was removed at 24 hours placement. She had little to no bleeding with the packing in and the blood on the packing appeared dark and no fresh blood was noted. There was a strong odor and the patient was placed on keflex and flagyl for infection prophylaxis. Initially, she did well without the packing. She was tolerating a regular diet and still had IV fluids going. Her hemoglobin dropped a little, so I slowed the fluids. It was back up to previous after that, but the patient complained of dizziness and lightheadedness when standing. She also reported that she had started to have bright red bleeding again and soaked 4 pads in 2 hours, then revised to say that her bleeding was heavier than she thought it should have been, but she wasn't soaking the pad. A CT scan was performed, which was normal. She received another unit of blood, due to being symptommatic. Her hemoglobin 9.8. She requested transfer to [place]. I contacted sales service manager/onc and they were able to accept her as a patient. She was transferred by ambulance to [facility] for specialized care. Physical Exam Urinary Catheter Management: Abraham Latex: Cath Placed During This Visit: yes, but has since been removed by the nurse Reason for Continuing Indwelling Catheter: Decision to DC Catheter Urinary Catheter Date of Insertion: 06/03/23 Urinary Catheter Time of Insertion: 16:42 Date Urinary Catheter Removed: 06/04/23 Time Urinary Catheter Discontinued: 17:57 Discharge Data Studies Completed and Pending Completed Studies During Hospitalization Category Date Time Status CT abdomen pelvis w con* [id number] Stat Cat Scan 06/05/23 03:20 Completed Pending at discharge Category Date Time Status CBC Auto Diff [Complete Blood Count w/Auto] Q4H Lab 06/05/23 10:00 Ordered CBC Auto Diff [Complete Blood Count w/Auto] Q4H Lab 06/05/23 14:00 Ordered CBC Auto Diff [Complete Blood Count w/Auto] Q4H Lab 06/05/23 18:00 Ordered Pathology: Surgical [PTH] Routine Pth 06/03/23 16:04 Ordered Radiology Impressions Abdomen/Pelvis CT 06/05/23 03:20 IMPRESSION: 1. Suspect prominent fluid/blood in the endometrial canal, see above details/discussion. 2. No intraperitoneal fluid/blood, or intraperitoneal hematoma. 3. Somewhat distended stomach. 4. Small amount of gas in the urinary bladder, see above. 5. Normal appendix. 6. Other findings discussed above. Laboratory Results WBC 8.6 10^3/uL (4.0-10.0) 06/05/23 10:50 RBC 3.50 10^6/uL (4.1-5.3) L 06/05/23 10:50 Hgb 9.8 g/dL (11.5-15.3) L 06/05/23 10:50 Hct 30.9 % (37.0-47.0) L 06/05/23 10:50 MCV 88.3 fl (81-99) 06/05/23 10:50 MCH 28.0 pg (28.0-34.0) 06/05/23 10:50 MCHC 31.7 g/dL (30.0-36.0) 06/05/23 10:50 RDW 16.0 % (12.1-15.1) H 06/05/23 10:50 Plt Count 292 10^3/cmm (130-400) 06/05/23 10:50 MPV 10.7 fL (7.4-10.4) H 06/05/23 10:50 Neut % (Auto) 66.2 % 06/05/23 10:50 Lymph % (Auto) 23.1 % 06/05/23 10:50 [place] % (Auto) 5.1 % 06/05/23 10:50 Eos % (Auto) 4.2 % 06/05/23 10:50 Baso % (Auto) 0.8 % 06/05/23 10:50 Neut # (Auto) 5.72 10^3/uL (1.8-7.7) 06/05/23 10:50 Lymph # (Auto) 2.0 10^3/uL (0.8-4.8) 06/05/23 10:50 [place] # (Auto) 0.4 10^3/uL (0.2-0.9) 06/05/23 10:50 Eos # (Auto) 0.4 10^3/uL (0.0-0.8) 06/05/23 10:50 Baso # (Auto) 0.1 10^3/uL (0.0-0.1) 06/05/23 10:50 Nucleated RBC % (auto) 0 % 06/05/23 10:50 Nucleated RBCs # 0.0 /100WBC 06/05/23 10:50 PT 14.10 SECONDS (12.1-14.9) 06/03/23 09:10 INR 1.06 (0.8-1.2) 06/03/23 09:10 APTT 26.6 SECONDS (23.9-36.7) 06/03/23 09:10 Sodium 138 mmol/L (136-145) 06/03/23 09:10 Potassium 4.0 mmol/L (3.5-5.1) 06/03/23 09:10 Chloride 109 mmol/L (98-107) H 06/03/23 09:10 Carbon Dioxide 16 mmol/L (22-29) L 06/03/23 09:10 Anion Gap 17.0 (5-19) 06/03/23 09:10 BUN 15 mg/dL (6-20) 06/03/23 09:10 Creatinine 0.7 mg/dL (0.5-0.9) 06/03/23 09:10 GFR Calculation 99.6 mL/min (90-130) 06/03/23 09:10 Glucose 85 mg/dL (65-115) 06/03/23 09:10 Calculated Osmolality 286 mOsm/kg (285-295) 06/03/23 09:10 Calcium 8.3 mg/dL (8.5-10.5) L 06/03/23 09:10 Total Bilirubin 0.2 mg/dL (0.15-1.2) 06/03/23 09:10 AST 17 U/L (0-32) 06/03/23 09:10 ALT 17 U/L (0-33) 06/03/23 09:10 Alkaline Phosphatase 95 U/L (35-105) 06/03/23 09:10 Total Protein 5.8 g/dL (6.6-8.7) L 06/03/23 09:10 Albumin 3.1 g/dL (3.5-5.2) L 06/03/23 09:10 Globulin 2.7 g/dL (1.3-4.6) 06/03/23 09:10 TSH 2.47 uIU/mL (0.27-4.20) 06/03/23 09:10 Blood Type O Positive 06/03/23 14:01 Rho(D) Type Positive 06/03/23 14:01 Antibody Screen Negative 06/03/23 14:01 Crossmatch See Detail 06/03/23 14:01 Vitals Last Vital Signs Temp 98.3 F 06/05/23 11:26 Pulse 70 06/05/23 07:40 Resp 17 06/05/23 11:26 BP 103/71 06/05/23 11:26 Pulse Ox 97 06/05/23 11:26 O2 Del Method Room Air 06/04/23 11:29 O2 Flow Rate 6 06/03/23 16:20 Discharge Plan Discharge Patient Disposition: Xfer Other Condition: Stable Prescriptions: New metronidazole 500 mg Tablet 500 mg PO QID Qty: 40 0RF cephalexin 500 mg capsule 500 mg PO Q6H 10 Days Qty: 40 0RF Continued (DME) Breast pump See Rx Instructions .Route .MEDSUPPLY Qty: 1 0RF Rx Instructions: As directed ferrous sulfate 325 mg (65 mg iron) Tablet,Delayed Release (Dr/Ec) 325 mg PO BIDWM Qty: 60 0RF hydrocodone-acetaminophen 5-325 mg Tablet 1 - 2 tab PO Q6H PRN (Reason: Moderate To Severe Pain) Qty: 10 0RF Tylenol Ex Str Rapid Release 500 mg Tablet 500 mg PO Q6H PRN (Reason: Pain) ibuprofen 200 mg Tablet 600 mg PO Q6H PRN (Reason: Pain) Colace 100 mg Capsule 100 mg PO BID Multivitamins 28 mg iron- 800 mcg Tablet 1 tab PO QAM Discharge Orders: Discharge Order (Routine); Ordered 06/05/23 Ordered By: Brenda Stoddard Referrals: Jim Vasquez MD [Primary Care Provider] - Patient Instructions: Opioid Safety Discharge Attestations Time Spent in Discharge Care*: greater than 30 min Quality Metrics Clinical Quality Measures [ No reported AMI, CVA or VTE this stay] Coding Level of Care Code Acute Code for Chg Fwd Diagnoses bleeding O72.1
[2023-06-05] MEDS: dextrose 5%-lactated ringers 1,000 ML 50 ML IV (12:11)
== END 2023-06-05 14:50 | disposition short-term general hospital (02) | DRG 769 ==
LOC: ER 12:25 → OR 12:33 → MEDSURG 18:19
PROVIDERS: Anesthesiology; Obstetrics & Gynecology; Admitting Provider Obstetrics & Gynecology; Emergency Provider Emergency Medicine; PCP Family Medicine; Visit Provider Obstetrics & Gynecology
PROC: 10D17ZZ Extraction of Products of Conception, Retained, Via Natural or Artificial Opening (ICD-10-PCS; CPT 58120; principal; 2023-06-03 13:50)
DX: O72.2 Delayed and secondary postpartum hemorrhage (principal)
CPT/HCPCS: 36415; 36430; 51702; 74177; 80053; 84443; 85014; 85018; 85025; 85027; 85610; 85730; 86850; 86900; 86920; 88305; 93005; 99285; J0330; J0696; J1100; J1885; J2210; J2371; J2405; J2704; J2710; J3010; J3490; J7030; J7121; P9016; P9045; Q9967

== ENCOUNTER → 2023-06-20 15:49 | Outpatient (BNVA) | payer BC, SELFPAY | PROVIDERS: PCP Family Medicine; Visit Provider Family Medicine | DX: Z00.00 Encounter for general adult medical examination without abnormal findings (principal); N76.0 Acute vaginitis | CPT/HCPCS: 87481; 87512; 87799; 88175 ==